=== PATIENT | female | born 1930 | race African-American/Black ===

== ENCOUNTER → 2016-07-09 | Outpatient (CLI) | payer MEDICARE, MEDICAID ==
[2016-07-09 15:30] LABS: ABSOLUTE LYMPHOCYTES (AUTO) 2.3 10^3/uL (0.5-4.7); ABSOLUTE MONOCYTES (AUTO) 0.7 10^3/uL (0.1-1.4); ABSOLUTE NEUT (AUTO) 2.9 10^3/uL (1.7-8.2); BASOPHILS % (AUTO) 0.5 % (0-2); EOSINOPHILS % (AUTO) 0.5 % (0-6); HEMATOCRIT 23.5 % (36.0-47.0); HGB HCT DIFFERENCE -0.4; LYMPHOCYTES % (AUTO) 38.2 % (13-45); MEAN CORPUSCULAR HEMOGLOBIN 26.8 pg (27.0-33.4); MEAN CORPUSCULAR VOLUME 81 fl (80-97); MONOCYTES % (AUTO) 11.6 % (3-13); RED BLOOD COUNT 2.89 10^6/uL (3.72-5.28); RED CELL DISTRIBUTION WIDTH 19.8 % (11.5-14.0); SEGMENTED NEUTROPHILS % (AUTO) 49.2 % (42-78); WHITE BLOOD COUNT 5.9 10^3/uL (4.0-10.5)
[2016-07-09 15:43] LABS: HEMOGLOBIN 7.7 g/dL (12.0-15.5)
[2016-07-09 18:21] LABS: ALANINE AMINOTRANSFERASE 14 U/L (9-52); ALBUMIN 3.3 g/dL (3.5-5.0); ALKALINE PHOSPHATASE 84 U/L (38-126); AMYLASE 110 U/L (30-110); ANION GAP 12 (5-19); ASPARTATE AMINO TRANSFERASE 31 U/L (14-36); BILIRUBIN,TOTAL 0.5 mg/dL (0.2-1.3); BLOOD UREA NITROGEN 23 mg/dL (7-20); CARBON DIOXIDE 25 mmol/L (22-30); CHLORIDE 105 mmol/L (98-107); CREATININE RESULT 1.19 mg/dL (0.52-1.25); GLUCOSE 105 mg/dL (75-110); POTASSIUM 4.1 mmol/L (3.6-5.0); SODIUM 142.1 mmol/L (137-145); TOTAL PROTEIN 10.4 g/dL (6.3-8.2)
== END ==
LOC: OD 14:13
PROVIDERS: ATTEND Specialist
DX: D64.9 Anemia, unspecified (principal); R10.9 Unspecified abdominal pain; D50.9 Iron deficiency anemia, unspecified; R97.0 Elevated carcinoembryonic antigen [CEA]
CPT/HCPCS: 36415; 80053; 82150; 82728; 83540; 83550; 83690; 85025

== ENCOUNTER 2016-08-15 11:10 | Outpatient (CLI) | payer MEDICARE, MEDICAID ==
[~2016-08-15 11:10] MED LIST: FERRIC CARBOXYMALTOSE 750 MG in NORMAL SALINE 250 ML IV PRN; FERUMOXYTOL (NON-ESRD) 510 MG/NS 100 ML IV PRN; NORMAL SALINE 250 ML IV PRN
[2016-08-15 11:48] VITALS: BP 160/78
== END 2016-08-15 12:22 | disposition home or self-care (01) ==
LOC: II 11:10 → 5TH 11:11 → II 12:22
PROVIDERS: ATTEND Internal Medicine
PROC: 3E033GC Introduction of Other Therapeutic Substance into Peripheral Vein, Percutaneous Approach (ICD-10-PCS; principal; 2016-08-15)
DX: D63.1 Anemia in chronic kidney disease (principal); N18.2 Chronic kidney disease, stage 2 (mild)
CPT/HCPCS: 96365; Q0138; J1439; J7050

== ENCOUNTER → 2016-08-26 | Outpatient (CLI) | payer MEDICARE, MEDICAID | LOC: RAD 13:44 | PROVIDERS: ATTEND Internal Medicine Gastroenterology | DX: R10.13 Epigastric pain (principal); R63.4 Abnormal weight loss | CPT/HCPCS: 74177; 82565 ==

== ENCOUNTER 2016-10-16 09:21 | Outpatient (CLI) | payer MEDICARE, MEDICAID ==
[~2016-10-16 09:21] MED LIST changes: +ACETAMINOPHEN 325 MG TABLET PO PRN; +DIPHENHYDRAMINE HCL 25 MG CAPSULE PO PRN; -FERRIC CARBOXYMALTOSE 750 MG in NORMAL SALINE 250 ML IV PRN; -FERUMOXYTOL (NON-ESRD) 510 MG/NS 100 ML IV PRN; +FUROSEMIDE 20 MG TABLET PO PRN; -NORMAL SALINE 250 ML IV PRN
[2016-10-16] MEDS ORDERED: NORMAL SALINE 250 ML IV PRN (09:40)
[2016-10-16 10:18] LABS: HGB HCT DIFFERENCE 0.4; MEAN CORPUSCULAR HEMOGLOBIN 28.4 pg (27.0-33.4); MEAN CORPUSCULAR HGB CONC 34.1 g/dL (32.0-36.0); MEAN CORPUSCULAR VOLUME 83 fl (80-97); RED BLOOD COUNT 2.76 10^6/uL (3.72-5.28); RED CELL DISTRIBUTION WIDTH 19.1 % (11.5-14.0); WHITE BLOOD COUNT 5.2 10^3/uL (4.0-10.5)
[2016-10-16 10:44] LABS: HEMOGLOBIN 7.8 g/dL (12.0-15.5)
[2016-10-16 14:36] VITALS: BP 128/62
== END 2016-10-16 14:52 | disposition home or self-care (01) ==
LOC: II 09:21 → 5TH 09:38 → II 14:52
PROVIDERS: ATTEND Internal Medicine
PROC: 30233N1 Transfusion of Nonautologous Red Blood Cells into Peripheral Vein, Percutaneous Approach (ICD-10-PCS; principal; 2016-10-16)
DX: D64.9 Anemia, unspecified (principal)
CPT/HCPCS: 86900; 86901; 36415; 36430; 86850; 86920; P9016; A9270 ×3

== ENCOUNTER → 2016-11-07 | Outpatient (CLI) | payer MEDICARE, MEDICAID | LOC: RAD 14:46 | PROVIDERS: ATTEND Internal Medicine | DX: C90.00 Multiple myeloma not having achieved remission (principal) | CPT/HCPCS: 77075 ==

== ENCOUNTER 2016-11-18 09:16 | Emergency (ER) | payer MEDICARE, MEDICAID ==
[2016-11-18] MEDS ORDERED: NORMAL SALINE 1000 ML 1,000 ML IV ONE (10:19)
[2016-11-18] MEDS ORDERED: KETOROLAC TROMETHAMINE INJ/PF 30 MG/1 ML SDV IV ONE (10:36)
--- NOTE | 2016-11-18 10:45 | ER Document Report ---
ED General - General Chief Complaint: Weakness Stated Complaint: GENERALIZED WEAKNESS Time Seen by Provider: 11/18/16 10:19 TRAVEL OUTSIDE OF THE [place] IN LAST 30 DAYS: No - HPI Patient complains to provider of: Generalized weakness diffuse body aches Notes: Patient is coming in for evaluation of generalized weakness and diffuse body aches. Symptoms have been ongoing for months. Patient was recently seen by a local oncologist Dr. Spencer diagnosis of multiple myeloma. Currently not on any chemotherapy or radiation for his newly diagnosed cancer. Patient states that she has been tried on tramadol and oxycodone with no relief of her pain. Patient states that the oxycodone does not sit well with her therefore she does not like to take it. Patient is able to tolerate her tramadol however states it does not relieve her pain. Patient otherwise denies any fevers chills. No recent antibiotics no recent travel. States PCP is Dr. Leigh Meza - Related Data Allergies/Adverse Reactions: No Known Allergies Allergy (Verified 10/29/15 22:05) Past Medical History - Social History Smoking Status: Never Smoker Chew tobacco use (# tins/day): No Frequency of alcohol use: None Drug Abuse: None Family History: Reviewed & Not Pertinent - Past Medical History Cardiac Medical History: Reports: Hx Coronary Artery Disease - STENT 2001, Hx Heart Attack, Hx Hypercholesterolemia, Hx Hypertension Pulmonary Medical History: Reports: Hx Asthma, Hx Bronchitis, Hx COPD Denies: Hx Pneumonia Neurological Medical History: Denies: Hx Cerebrovascular Accident, Hx Seizures GI Medical History: Reports: Hx Gastroesophageal Reflux Disease, Hx Hiatal Hernia, Hx Ulcer Musculoskeltal Medical History: Reports Hx Arthritis Infectious Medical History: Past Surgical History: Reports: Hx Cardiac Surgery - Stent 2001, Hx Cholecystectomy, Hx Hysterectomy, Hx Orthopedic Surgery - bilateral knees, Hx Tubal Ligation. Denies: Hx Pacemaker - Immunizations Hx Diphtheria, Pertussis, Tetanus Vaccination: No - UNSURE Hx Pneumococcal Vaccination: 09/27/10 Review of Systems - Review of Systems Constitutional: Weakness, Other - Myalgias EENT: No symptoms reported Cardiovascular: No symptoms reported Respiratory: No symptoms reported Gastrointestinal: No symptoms reported Genitourinary: No symptoms reported Female Genitourinary: No symptoms reported Musculoskeletal: No symptoms reported Skin: No symptoms reported Hematologic/Lymphatic: No symptoms reported Neurological/Psychological: No symptoms reported Physical Exam - Vital signs Vitals: Resp Pulse Ox 15 97 11/18/16 09:40 11/18/16 09:40 Interpretation: Normal - General General appearance: Appears well, Alert - HEENT Head: Normocephalic, Atraumatic Eyes: Normal Pupils: PERRL - Respiratory Respiratory status: No respiratory distress Chest status: Nontender Breath sounds: Normal Chest palpation: Normal - Cardiovascular Rhythm: Regular Heart sounds: Normal auscultation Murmur: No - Abdominal Inspection: Normal Distension: No distension Bowel sounds: Normal Tenderness: Nontender Organomegaly: No organomegaly - Back Back: Normal, Nontender - Extremities General upper extremity: Normal inspection, Nontender, Normal color, Normal ROM , Normal temperature General lower extremity: Normal inspection, Nontender, Normal color, Normal ROM , Normal temperature, Normal weight bearing. No: Latanya's sign - Neurological Neuro grossly intact: Yes Cognition: Normal Orientation: AAOx4 [place] Coma Scale Eye Opening: Spontaneous [place] Coma Scale Verbal: Oriented [place] Coma Scale Motor: Obeys Commands [place] Coma Scale Total: 15 Speech: Normal Motor strength normal: LUE, RUE, LLE, RLE Sensory: Normal - Psychological Associated symptoms: Normal affect, Normal mood - Skin Skin Temperature: Warm Skin Moisture: Dry Skin Color: Normal Course - Re-evaluation Re-evalutation: 11/18/16 10:44 Chronic condition and chronic illness. At this time his examination does not reveal any acute etiology. Lab work is already been ordered on the patient. We will continue her laboratory studies more likely will follow up with her primary care physician 11/18/16 18:53 Patient's lab work showed possible beginning of a urinary tract infection we will start the patient on Macrobid. X-ray does show signs of constipation. Rectal exam was performed if signs of obstruction and patient underwent enema with minimal results. Patient will begin MiraLAX for home. I did discuss with the patient's oncologist recommend trying Yutan for pain control that he will follow-up with the patient. Patient was given IV fluids for her bump in her creatinine. Patient will be discharged home - Vital Signs Vital signs: Temp Pulse Resp BP Pulse Ox 97.9 F 13 174/60 H 94 11/18/16 15:07 11/18/16 15:07 11/18/16 15:07 11/18/16 15:07 - Laboratory Result Diagrams: 11/18/16 10:37 11/18/16 10:37 Laboratory results interpreted by me: 11/18/16 11/18/16 11/18/16 10:37 10:37 12:20 RBC 3.43 L Hgb 9.7 L Hct 29.3 L RDW 17.9 H Chloride 108 H Creatinine 1.33 H Est GFR ( Amer) 46 L Est GFR (Non-Af Amer) 38 L Calcium 10.3 H Direct Bilirubin 0.5 H Total Protein 11.6 H Albumin 3.3 L Urine Blood MODERATE H Ur Leukocyte Esterase SMALL H Discharge - Discharge Clinical Impression: Generalized weakness, Myalgia Urinary tract infection Qualifiers: Urinary tract infection type: acute cystitis Hematuria presence: without hematuria Qualified Code(s): N30.00 - Acute cystitis without hematuria Constipation Qualifiers: Constipation type: unspecified constipation type Qualified Code(s): K59.00 - Constipation, unspecified Condition: Good Disposition: HOME, SELF-CARE Instructions: Nitrofurantoin ([facility]), Urinary Tract Infection ([facility]), Constipation ([facility]), Weakness ([facility]) Additional Instructions: I discussed her case today with Dr. Bustamante. We will start you on Yutan for your pain control. Please do not take this with any Ultram or oxycodone. The pain medication as well as is causing her constipation please make sure that you are taking the MiraLAX as prescribed daily Urinalysis does show signs of the beginning of an infection we will treat this with Macrobid Drink plenty of water to stay hydrated Prescriptions: Hydrocodone/Acetaminophen [Yutan 5-325 mg Tablet] 1 tab PO Q6 #20 tablet Nitrofurantoin/Nitrofuran Mac [Macrobid 100 mg Capsule] 1 tab PO BID #14 capsule Polyethylene Glycol 3350 [Miralax Powder 17 gm/Packet] 1 packet PO DAILY #1 pkg Forms: Return to Work
[2016-11-18 11:15] LABS: ABSOLUTE LYMPHOCYTES (AUTO) 2.2 10^3/uL (0.5-4.7); ABSOLUTE MONOCYTES (AUTO) 0.7 10^3/uL (0.1-1.4); ABSOLUTE NEUT (AUTO) 2.7 10^3/uL (1.7-8.2); BASOPHILS % (AUTO) 0.3 % (0-2); EOSINOPHILS % (AUTO) 0.3 % (0-6); HEMATOCRIT 29.3 % (36.0-47.0); HEMOGLOBIN 9.7 g/dL (12.0-15.5); HGB HCT DIFFERENCE -0.2; LYMPHOCYTES % (AUTO) 38.8 % (13-45); MEAN CORPUSCULAR HEMOGLOBIN 28.4 pg (27.0-33.4); MEAN CORPUSCULAR HGB CONC 33.3 g/dL (32.0-36.0); MEAN CORPUSCULAR VOLUME 85 fl (80-97); RED BLOOD COUNT 3.43 10^6/uL (3.72-5.28); RED CELL DISTRIBUTION WIDTH 17.9 % (11.5-14.0); SEGMENTED NEUTROPHILS % (AUTO) 47.6 % (42-78); WHITE BLOOD COUNT 5.7 10^3/uL (4.0-10.5)
[2016-11-18 11:27] LABS: CREATINE KINASE MB < 0.22 ng/mL (<4.55); TROPONIN I < 0.012 ng/mL
[2016-11-18 11:41] LABS: ANISOCYTOSIS 1+; OVALOCYTES SLIGHT; POIKILOCYTOSIS SLIGHT; TARGET CELLS 1+; TEAR DROP CELLS SLIGHT
[2016-11-18 11:45] LABS: BLOOD UREA NITROGEN 19 mg/dL (7-20); CALCIUM 10.3 mg/dL (8.4-10.2); GLUCOSE 102 mg/dL (75-110)
[2016-11-18 11:46] LABS: ALANINE AMINOTRANSFERASE 18 U/L (9-52); ALBUMIN 3.3 g/dL (3.5-5.0); ALKALINE PHOSPHATASE 83 U/L (38-126); ANION GAP 6 (5-19); ASPARTATE AMINO TRANSFERASE 34 U/L (14-36); BILIRUBIN,DIRECT 0.5 mg/dL (0.0-0.4); BILIRUBIN,TOTAL 0.8 mg/dL (0.2-1.3); CARBON DIOXIDE 28 mmol/L (22-30); CHLORIDE 108 mmol/L (98-107); CREATINE KINASE 40 U/L (30-135); CREATININE RESULT 1.33 mg/dL (0.52-1.25); POTASSIUM 3.8 mmol/L (3.6-5.0); SODIUM 141.8 mmol/L (137-145); TOTAL PROTEIN 11.6 g/dL (6.3-8.2)
--- NOTE | 2016-11-18 11:52 | RADIOLOGY REPORT (SQ) ---
EXAM DESCRIPTION: ACUTE ABDOMEN SERIES COMPLETED DATE/TIME: 11/18/2016 11:27 am REASON FOR STUDY: weakness constipation COMPARISON: 10/11/2010 NUMBER OF VIEWS: Three views. TECHNIQUE: Frontal chest, supine abdomen and upright/decubitus abdomen radiographic images acquired. LIMITATIONS: None. FINDINGS: CHEST: Lungs clear of infiltrates. FREE AIR: None. No abnormal gas collections. BOWEL GAS PATTERN: Nonobstructive pattern. No dilated loops or air fluid levels. CALCIFICATIONS: No suspicious calcifications. HARDWARE: Clips right upper quadrant. SOFT TISSUES: No gross mass or suggestion of organomegaly. BONES: No acute fracture. No worrisome bone lesions. OTHER: No other significant finding. IMPRESSION: NO RADIOGRAPHIC EVIDENCE FOR ACUTE ABDOMINAL DISEASE. TECHNICAL DOCUMENTATION: JOB ID: [id number] [employer]- All Rights Reserved
[2016-11-18 12:55] LABS: APPEARANCE,URINE SLIGHTLY-CLOUDY; BILIRUBIN,URINE NEGATIVE (NEGATIVE); GLUCOSE, URINE NEGATIVE (NEGATIVE); KETONES,URINE NEGATIVE (NEGATIVE); LEUKOCYTE ESTERASE,URINE SMALL (NEGATIVE); NITRITE,URINE NEGATIVE (NEGATIVE); PROTEIN,URINE NEGATIVE (NEGATIVE); URINE SPECIFIC GRAVITY 1.009; UROBILINOGEN,URINE NEGATIVE mg/dL (<2.0)
[2016-11-18] MEDS ORDERED: NITROFURANTOIN MONOHYD/M-CRYST 100 MG CAPSULE PO ONE (13:23)
[2016-11-18] MEDS ORDERED: LIDOCAINE 2% URO-JET 5 ML KIT MM ONE (13:27)
--- NOTE | 2016-11-18 13:35 | EKG REPORT ---
SEVERITY:- NORMAL ECG - SINUS RHYTHM : Confirmed by: Vishal Infante MD 18-Nov-2016 13:34:04
[2016-11-18] MEDS ORDERED: NA PHOS,M-B/NA PHOS,DI-BA (ADULT) 133 ML ENEMA PR ONE (13:40)
[2016-11-18 15:49] VITALS: BP 174/60
== END 2016-11-18 15:58 | disposition home or self-care (01) ==
LOC: ER 09:16
DX: C90.00 Multiple myeloma not having achieved remission (principal); N30.00 Acute cystitis without hematuria; R53.1 Weakness; M79.1 Myalgia; I25.10 Atherosclerotic heart disease of native coronary artery without angina pectoris; I25.2 Old myocardial infarction; I10 Essential (primary) hypertension; J44.9 Chronic obstructive pulmonary disease, unspecified; Z98.61 Coronary angioplasty status
CPT/HCPCS: 93005; 99285; 96374; 36415; 87086; 82553; 82550; 85025; 80053; 81001; 84484; 74022; 93010; A9270 ×3; J1885; J7030; J3490; J8499

== ENCOUNTER 2016-11-28 23:59 | Emergency (ER) | payer MEDICARE, MEDICAID ==
[2016-11-29 00:06] VITALS: BP 141/54
--- NOTE | 2016-11-29 00:36 | ER Document Report ---
ED GI/ - General Mode of Arrival: Medic Information source: Patient TRAVEL OUTSIDE OF THE [place] IN LAST 30 DAYS: No - HPI Patient complains to provider of: Abdominal pain Onset: Other - Refer to HPI notes Associated symptoms: Constipation Similar symptoms previously: Yes Recently seen / treated by doctor: Yes <MARISELA MANUEL - Last Filed: 11/29/16 01:00> <BRANDON ANGEL - Last Filed: 11/29/16 03:18> - General Chief Complaint: Abdominal Cramping Stated Complaint: ABDOMINAL PAIN Time Seen by Provider: 11/29/16 00:24 Notes: Patient is an 86 year old female presenting to the emergency department for abdominal pain and constipation. Patient was seen on 11/18/16 for the same. Patient has been using a stool softener with no relief. Patient has not been moving her bowels and her abdominal pain is exacerbated with sitting up. Patient has multiple myeloma with metastasis and started chemotherapy on . Patient has not been able to complete her chemotherapy treatments due to her abdominal pain. Patient is followed for her multiple myeloma by Dr. Sifuentes and patient's PCP is Dr. Meza. (MARISELA MANUEL) - Related Data Allergies/Adverse Reactions: No Known Allergies Allergy (Verified 10/29/15 22:05) Past Medical History - General Information source: Patient - Social History Smoking Status: Unknown if Ever Smoked Family History: None - Past Medical History Cardiac Medical History: Reports: Hx Coronary Artery Disease, Hx Heart Attack, Hx Hypercholesterolemia, Hx Hypertension Pulmonary Medical History: Reports: Hx Asthma, Hx Bronchitis, Hx COPD Malignancy Medical History: Reports: Other - Multiple myeloma with metastasis GI Medical History: Reports: Hx Gastroesophageal Reflux Disease, Hx Hiatal Hernia, Hx Ulcer Musculoskeltal Medical History: Reports Hx Arthritis Infectious Medical History: Past Surgical History: Reports: Hx Cardiac Surgery - Stent x2 2001, Hx Cholecystectomy, Hx Hysterectomy, Hx Orthopedic Surgery - bilateral knees, Hx Tubal Ligation - Immunizations Hx Diphtheria, Pertussis, Tetanus Vaccination: No - UNSURE Hx Pneumococcal Vaccination: 09/27/10 <MARISELA MANUEL - Last Filed: 11/29/16 01:00> Review of Systems - Review of Systems Constitutional: No symptoms reported EENT: No symptoms reported Cardiovascular: No symptoms reported Respiratory: No symptoms reported Gastrointestinal: See HPI, Abdominal pain, Constipation Genitourinary: No symptoms reported Female Genitourinary: No symptoms reported Musculoskeletal: No symptoms reported Skin: No symptoms reported Hematologic/Lymphatic: No symptoms reported Neurological/Psychological: No symptoms reported -: Yes All other systems reviewed and negative <MARISELA MANUEL - Last Filed: 11/29/16 01:00> Physical Exam - Vital signs Interpretation: Normal - General General appearance: Appears well, Alert In distress: Moderate - HEENT Head: Normocephalic, Atraumatic Eyes: Normal Pupils: PERRL Mucous membranes: Moist - Respiratory Respiratory status: No respiratory distress Chest status: Nontender Breath sounds: Normal Chest palpation: Normal - Cardiovascular Rhythm: Regular Heart sounds: Normal auscultation Murmur: No - Abdominal Inspection: Normal Distension: No distension Bowel sounds: Normal Tenderness: Tender - Tenderness to palpation more so on the right lower quadrant and right side Organomegaly: No organomegaly - Back Back: Normal, Nontender - Extremities General upper extremity: Normal inspection, Normal ROM, Normal strength General lower extremity: Normal inspection, Normal ROM, Normal strength - Neurological Neuro grossly intact: Yes Cognition: Normal Orientation: AAOx4 [place] Coma Scale Eye Opening: Spontaneous [place] Coma Scale Verbal: Oriented [place] Coma Scale Motor: Obeys Commands [place] Coma Scale Total: 15 Speech: Normal - Psychological Associated symptoms: Normal affect, Normal mood - Skin Skin Temperature: Warm Skin Moisture: Dry <MARISELA MANUEL - Last Filed: 11/29/16 01:00> <BRANDON ANGEL - Last Filed: 11/29/16 03:18> - Vital signs Vitals: Temp Pulse Resp BP Pulse Ox 99.6 F 64 16 141/54 H 94 11/29/16 00:04 11/29/16 00:04 11/29/16 00:04 11/29/16 00:04 11/29/16 00:04 Course - Laboratory Result Diagrams: 11/29/16 00:30 11/29/16 00:30 <MARISELA MANUEL - Last Filed: 11/29/16 01:00> - Laboratory Result Diagrams: 11/29/16 00:30 11/29/16 01:05 - Diagnostic Test Radiology reviewed: Image reviewed - Right colon constipation - EKG Interpretation by Fl EKG shows normal: Sinus rhythm, [place], Intervals, QRS Complexes, ST-T Waves Rate: Normal - 61 Rhythm: NSR P Waves: LAE - Consults Dr. Bright Time consulted: 02:05 Consulted provider: follow-up in office <BRANDON ANGEL - Last Filed: 11/29/16 03:18> - Re-evaluation Re-evalutation: 11/29/16 01:59 Patient's serum lipase is 673, however reviewing her prior labs shows it is usually higher than this over the past year. KUB showed right colon constipation, she is on a polyethylene glycol powder to treat her constipation. (BRANDON ANGEL) - Vital Signs Vital signs: Temp Pulse Resp BP Pulse Ox 99.6 F 64 16 141/54 H 94 11/29/16 00:04 11/29/16 00:04 11/29/16 00:04 11/29/16 00:04 11/29/16 00:04 - Laboratory Laboratory results interpreted by me: 11/29/16 11/29/16 11/29/16 00:30 01:05 02:35 RBC 2.77 L Hgb 8.0 L Hct 24.1 L RDW 18.2 H Plt Count 120 L BUN 35 H Est GFR (Non-Af Amer) 53 L Total Protein 9.9 H Albumin 3.1 L Lipase 672.7 H Urine Blood MODERATE H Critical Care Note - Critical Care Note Total time excluding time spent on procedures (mins): 35 <BRANDON ANGEL - Last Filed: 11/29/16 03:18> Discharge <MARISELA MANUEL - Last Filed: 11/29/16 01:00> <BRANDON ANGEL - Last Filed: 11/29/16 03:18> - Discharge Clinical Impression: Serum lipase elevation Multiple myeloma Qualifiers: Multiple myeloma remission status: not in remission Qualified Code(s): C90.00 - Multiple myeloma not having achieved remission Constipation Qualifiers: Constipation type: drug induced constipation Qualified Code(s): K59.03 - Drug induced constipation Abdominal pain Qualifiers: Abdominal location: generalized Qualified Code(s): R10.84 - Generalized abdominal pain Anemia Qualifiers: Anemia type: other cause Other causes of anemia: other cause, not classified Qualified Code(s): D64.89 - Other specified anemias Condition: Stable Disposition: HOME, SELF-CARE Additional Instructions: Your abdominal pain seems most likely to be related to constipation. Your lab work suggests you should drink more fluids than you have been. Continue your regular medications. Follow-up with Dr. Bright on Thursday to recheck your lab work. Binh Attestation: 11/29/16 03:18 I personally performed the services described in the documentation, reviewed and edited the documentation which was dictated to the scribe in my presence, and it accurately records my words and actions. (BRANDON ANGEL) Scribe Documentation - Scribe Written by Binh:: Binh Nation, 11/29/2016 1:00 acting as scribe for :: Harriet <MARISELA MANUEL - Last Filed: 11/29/16 01:00>
[2016-11-29 00:54] LABS: ABSOLUTE LYMPHOCYTES (AUTO) 1.1 10^3/uL (0.5-4.7); ABSOLUTE MONOCYTES (AUTO) 0.6 10^3/uL (0.1-1.4); ABSOLUTE NEUT (AUTO) 3.5 10^3/uL (1.7-8.2); BASOPHILS % (AUTO) 0.9 % (0-2); EOSINOPHILS % (AUTO) 0.5 % (0-6); HEMATOCRIT 24.1 % (36.0-47.0); HGB HCT DIFFERENCE -0.1; LYMPHOCYTES % (AUTO) 21.2 % (13-45); MEAN CORPUSCULAR HGB CONC 33.3 g/dL (32.0-36.0); MEAN CORPUSCULAR VOLUME 87 fl (80-97); MONOCYTES % (AUTO) 11.9 % (3-13); RED BLOOD COUNT 2.77 10^6/uL (3.72-5.28); RED CELL DISTRIBUTION WIDTH 18.2 % (11.5-14.0); SEGMENTED NEUTROPHILS % (AUTO) 65.5 % (42-78); WHITE BLOOD COUNT 5.4 10^3/uL (4.0-10.5)
[2016-11-29 01:32] LABS: ALANINE AMINOTRANSFERASE 26 U/L (9-52); ALBUMIN 3.1 g/dL (3.5-5.0); ALKALINE PHOSPHATASE 68 U/L (38-126); ANION GAP 10 (5-19); ASPARTATE AMINO TRANSFERASE 36 U/L (14-36); BILIRUBIN,DIRECT 0.4 mg/dL (0.0-0.4); BILIRUBIN,TOTAL 0.7 mg/dL (0.2-1.3); BLOOD UREA NITROGEN 35 mg/dL (7-20); CARBON DIOXIDE 28 mmol/L (22-30); CHLORIDE 107 mmol/L (98-107); CREATINE KINASE 35 U/L (30-135); GLUCOSE 110 mg/dL (75-110); LIPASE 672.7 U/L (23-300); POTASSIUM 3.6 mmol/L (3.6-5.0); SODIUM 144.5 mmol/L (137-145); TOTAL PROTEIN 9.9 g/dL (6.3-8.2)
[2016-11-29 01:45] LABS: CREATINE KINASE MB 0.35 ng/mL (<4.55); TROPONIN I 0.029 ng/mL
[2016-11-29] MEDS ORDERED: MAGNESIUM CITRATE 296 ML BOTTLE PO ONE (02:09)
--- NOTE | 2016-11-29 02:29 | RADIOLOGY REPORT (SQ) ---
EXAM DESCRIPTION: KUB/ABDOMEN (SINGLE VIEW) COMPLETED DATE/TIME: 11/29/2016 1:38 am REASON FOR STUDY: ABD PAIN COMPARISON: Abdominal series 11/18/2016, CT abdomen and pelvis 08/26/2016. NUMBER OF VIEWS: One view. TECHNIQUE: Supine radiographic image of the abdomen acquired. LIMITATIONS: None. FINDINGS: BOWEL GAS PATTERN: Nonobstructive bowel gas pattern. No dilated loops. CALCIFICATIONS: No suspicious calcifications. SOFT TISSUES: No gross mass or suggestion of organomegaly. HARDWARE: Surgical clips in the right upper quadrant. BONES: Multilevel degenerative changes in the spine. IMPRESSION: Nonobstructive bowel gas pattern. TECHNICAL DOCUMENTATION: JOB ID: [id number] 2010 [employer]- All Rights Reserved
[2016-11-29 03:13] LABS: APPEARANCE,URINE SLIGHTLY-CLOUDY; BILIRUBIN,URINE NEGATIVE (NEGATIVE); GLUCOSE, URINE NEGATIVE (NEGATIVE); KETONES,URINE NEGATIVE (NEGATIVE); LEUKOCYTE ESTERASE,URINE NEGATIVE (NEGATIVE); NITRITE,URINE NEGATIVE (NEGATIVE); PROTEIN,URINE NEGATIVE (NEGATIVE); UROBILINOGEN,URINE NEGATIVE mg/dL (<2.0)
--- NOTE | 2016-11-30 09:25 | EKG REPORT ---
SEVERITY:- BORDERLINE ECG - SINUS RHYTHM PROBABLE LEFT ATRIAL ABNORMALITY : Confirmed by: Osvaldo Bro 30-Nov-2016 09:23:55
== END 2016-11-29 07:40 | disposition home or self-care (01) ==
LOC: ER 23:59
DX: C90.00 Multiple myeloma not having achieved remission (principal); K59.03 Drug induced constipation; R10.84 Generalized abdominal pain; D64.89 Other specified anemias
CPT/HCPCS: 93005; 99285; 36415; 87040; 82553; 82550; 83690; 85025; 80053; 81001; 84484; 74000; 93010; J3490

== ENCOUNTER 2017-02-03 11:51 | Emergency (ER) | payer MEDICARE, MEDICAID ==
[2017-02-03 12:08] VITALS: BP 133/71
--- NOTE | 2017-02-03 12:11 | EKG REPORT ---
SEVERITY:- BORDERLINE ECG - SINUS RHYTHM LVH BY VOLTAGE : Confirmed by: Osvaldo Bro 03-Feb-2017 12:10:35
--- NOTE | 2017-02-03 12:12 | ER Document Report ---
ED Medical Screen (RME) - General Chief Complaint: Chest Pain Stated Complaint: CHEST PAIN Time Seen by Provider: 02/03/17 12:09 Notes: Patient presents with left-sided chest pain for approximately 3 days. She states it is constant and severe. Patient did have a stent placed approximate 15 years ago. Patient also has "bone cancer". She last received treatment 3 days ago. She states she is not short of breath but it does hurt to breathe. No cough or congestion. Patient does take daily Lovenox injections. TRAVEL OUTSIDE OF THE [place] IN LAST 30 DAYS: No - Related Data Allergies/Adverse Reactions: No Known Allergies Allergy (Verified 10/29/15 22:05) Past Medical History - Past Medical History Cardiac Medical History: Reports: Hx Coronary Artery Disease, Hx Heart Attack, Hx Hypercholesterolemia, Hx Hypertension Pulmonary Medical History: Reports: Hx Asthma, Hx Bronchitis, Hx COPD Denies: Hx Pneumonia Neurological Medical History: Denies: Hx Cerebrovascular Accident, Hx Seizures Renal/ Medical History: Denies: Hx Peritoneal Dialysis GI Medical History: Reports: Hx Gastroesophageal Reflux Disease, Hx Hiatal Hernia, Hx Ulcer Musculoskeltal Medical History: Reports Hx Arthritis Infectious Medical History: Past Surgical History: Reports: Hx Cardiac Surgery - Stent x2 2001, Hx Cholecystectomy, Hx Hysterectomy, Hx Orthopedic Surgery - bilateral knees, Hx Tubal Ligation. Denies: Hx Pacemaker - Immunizations Hx Diphtheria, Pertussis, Tetanus Vaccination: No - UNSURE Physical Exam - Vital signs Vitals: Temp Pulse BP Pulse Ox 98.9 F 92 133/71 H 98 02/03/17 12:07 02/03/17 12:07 02/03/17 12:07 02/03/17 12:07 Course - Vital Signs Vital signs: Temp Pulse Resp BP Pulse Ox 98.9 F 92 133/71 H 98 02/03/17 12:07 02/03/17 12:07 02/03/17 12:07 02/03/17 12:07
[2017-02-03 12:57] LABS: ABSOLUTE LYMPHOCYTES (AUTO) 2.6 10^3/uL (0.5-4.7); ABSOLUTE MONOCYTES (AUTO) 0.3 10^3/uL (0.1-1.4); ABSOLUTE NEUT (AUTO) 1.1 10^3/uL (1.7-8.2); BASOPHILS % (AUTO) 0.5 % (0-2); EOSINOPHILS % (AUTO) 0.5 % (0-6); HEMATOCRIT 31.2 % (36.0-47.0); HEMOGLOBIN 10.3 g/dL (12.0-15.5); HGB HCT DIFFERENCE -0.3; LYMPHOCYTES % (AUTO) 63.6 % (13-45); MEAN CORPUSCULAR HEMOGLOBIN 27.6 pg (27.0-33.4); MEAN CORPUSCULAR VOLUME 84 fl (80-97); MONOCYTES % (AUTO) 7.6 % (3-13); RED BLOOD COUNT 3.72 10^6/uL (3.72-5.28); SEGMENTED NEUTROPHILS % (AUTO) 27.8 % (42-78); WHITE BLOOD COUNT 4.1 10^3/uL (4.0-10.5)
[2017-02-03 13:01] LABS: ALANINE AMINOTRANSFERASE 28 U/L (9-52); ALBUMIN 3.4 g/dL (3.5-5.0); ALKALINE PHOSPHATASE 133 U/L (38-126); ANION GAP 10 (5-19); ASPARTATE AMINO TRANSFERASE 37 U/L (14-36); BILIRUBIN,DIRECT 0.4 mg/dL (0.0-0.4); BILIRUBIN,TOTAL 0.7 mg/dL (0.2-1.3); BLOOD UREA NITROGEN 10 mg/dL (7-20); CALCIUM 8.8 mg/dL (8.4-10.2); CARBON DIOXIDE 25 mmol/L (22-30); CHLORIDE 104 mmol/L (98-107); CREATININE RESULT 0.74 mg/dL (0.52-1.25); GLUCOSE 102 mg/dL (75-110); POTASSIUM 4.1 mmol/L (3.6-5.0); SODIUM 138.7 mmol/L (137-145); TOTAL PROTEIN 7.6 g/dL (6.3-8.2)
[2017-02-03 13:02] LABS: ADD ON TESTING BLD IN LAB ACKNOWLEDGE
--- NOTE | 2017-02-03 13:04 | RADIOLOGY REPORT (SQ) ---
EXAM DESCRIPTION: CHEST SINGLE VIEW COMPLETED DATE/TIME: 02/03/2017 12:47 pm REASON FOR STUDY: cp COMPARISON: Chest films 11/02/2014, 06/09/2016 CT chest 01/20/2015 EXAM PARAMETERS: NUMBER OF VIEWS: One view. TECHNIQUE: Single frontal radiographic view of the chest acquired. RADIATION DOSE: NA LIMITATIONS: None. FINDINGS: LUNGS AND PLEURA: No opacities, masses or pneumothorax. No pleural effusion. MEDIASTINUM AND HILAR STRUCTURES: No masses. Contour normal. HEART AND VASCULAR STRUCTURES: Heart normal in size. Normal vasculature. BONES: No acute findings. Probably chronic T7 or T8 compression deformity HARDWARE: None in the chest. OTHER: No other significant finding. IMPRESSION: NO ACUTE RADIOGRAPHIC FINDING IN THE CHEST. TECHNICAL DOCUMENTATION: JOB ID: [id number]
--- NOTE | 2017-02-03 13:11 | ER Document Report ---
ED General - General Information source: Patient TRAVEL OUTSIDE OF THE [place] IN LAST 30 DAYS: No - HPI Onset: Other - 3 days Associated symptoms: Other - see above <PEGGY HUANG - Last Filed: 02/03/17 13:08> <BRANDON ANGEL - Last Filed: 02/03/17 16:32> - General Chief Complaint: Chest Pain Stated Complaint: CHEST PAIN Time Seen by Provider: 02/03/17 12:09 Notes: Patient is an 86 year old female who presents to the ED with complaints of left sided chest pain x3 days. Patient states exercise makes the pain worse. Patient states the pain comes and goes but also states it is there all the time. Patient is a vague historian. Patient is currently being treated for multiple myeloma with her first chemo being last Thrusday, she is not on any radiation. Patient is on a Fentanyl patch and 4mg hydromorphone every 6 hours. The last few days the pain medication has not been working. (PEGGY HUANG) - Related Data Allergies/Adverse Reactions: No Known Allergies Allergy (Verified 10/29/15 22:05) Past Medical History - General Information source: Patient - Social History Smoking Status: Unknown if Ever Smoked Family History: None Patient has suicidal ideation: No Patient has homicidal ideation: No - Past Medical History Cardiac Medical History: Reports: Hx Coronary Artery Disease, Hx Heart Attack, Hx Hypercholesterolemia, Hx Hypertension Pulmonary Medical History: Reports: Hx Asthma, Hx Bronchitis, Hx COPD Denies: Hx Pneumonia Neurological Medical History: Denies: Hx Cerebrovascular Accident, Hx Seizures Renal/ Medical History: Denies: Hx Peritoneal Dialysis GI Medical History: Reports: Hx Gastroesophageal Reflux Disease, Hx Hiatal Hernia, Hx Ulcer Musculoskeltal Medical History: Reports Hx Arthritis Infectious Medical History: Past Surgical History: Reports: Hx Cardiac Surgery - Stent x2 2001, Hx Cholecystectomy, Hx Hysterectomy, Hx Orthopedic Surgery - bilateral knees, Hx Tubal Ligation. Denies: Hx Pacemaker - Immunizations Hx Diphtheria, Pertussis, Tetanus Vaccination: No - UNSURE Hx Pneumococcal Vaccination: 09/27/10 <PEGGY HUANG - Last Filed: 02/03/17 13:08> Review of Systems - Review of Systems Constitutional: No symptoms reported EENT: No symptoms reported Cardiovascular: See HPI, Chest pain Respiratory: No symptoms reported Gastrointestinal: No symptoms reported Genitourinary: No symptoms reported Female Genitourinary: No symptoms reported Musculoskeletal: No symptoms reported Skin: No symptoms reported Hematologic/Lymphatic: No symptoms reported Neurological/Psychological: No symptoms reported <PEGGY HUANG - Last Filed: 02/03/17 13:08> Physical Exam - General General appearance: Alert In distress: None - HEENT Head: Normocephalic, Atraumatic Eyes: Normal Extraocular movements intact: Yes Pupils: PERRL - Respiratory Respiratory status: No respiratory distress Chest status: Tender - lateral left ribs tender at the L4, L5 level Breath sounds: Normal Chest palpation: Tender - lateral left ribs tender at the L4, L5 level - Cardiovascular Rhythm: Regular Heart sounds: Normal auscultation Murmur: No - Abdominal Inspection: Normal Distension: No distension Bowel sounds: Normal Tenderness: Nontender - Back Back: Normal - Extremities General upper extremity: Normal inspection, Normal ROM General lower extremity: Normal inspection, Normal ROM. No: Edema - Neurological Neuro grossly intact: Yes - Psychological Associated symptoms: Normal affect, Normal mood - Skin Skin Temperature: Warm Skin Moisture: Dry Skin Color: Normal <PEGGY HUANG - Last Filed: 02/03/17 13:08> Course - Laboratory Result Diagrams: 02/03/17 12:24 02/03/17 12:24 <PEGGY HUANG - Last Filed: 02/03/17 13:08> - Laboratory Result Diagrams: 02/03/17 12:24 02/03/17 12:24 <BRANDON ANGEL - Last Filed: 02/03/17 16:32> - Vital Signs Vital signs: Temp Pulse Resp BP Pulse Ox 98.9 F 92 133/71 H 98 02/03/17 12:07 02/03/17 12:07 02/03/17 12:07 02/03/17 12:07 - Laboratory Laboratory results interpreted by fl: 02/03/17 02/03/17 02/03/17 12:24 12:24 12:24 Hgb 10.3 L Hct 31.2 L RDW 18.0 H Seg Neutrophils % 27.8 L Lymphocytes % 63.6 H Absolute Neutrophils 1.1 L AST 37 H Alkaline Phosphatase 133 H Albumin 3.4 L Lipase 676.9 H Urine Blood Ur Leukocyte Esterase 08/08/17 14:36 Hgb Hct RDW Seg Neutrophils % Lymphocytes % Absolute Neutrophils AST Alkaline Phosphatase Albumin Lipase Urine Blood SMALL H Ur Leukocyte Esterase MODERATE H Discharge <PEGGY HUANG - Last Filed: 02/03/17 13:08> <BRANDON ANGEL - Last Filed: 02/03/17 16:32> - Discharge Clinical Impression: Rib pain on left side Multiple myeloma Qualifiers: Multiple myeloma remission status: not in remission Qualified Code(s): C90.00 - Multiple myeloma not having achieved remission Condition: Stable Disposition: HOME, SELF-CARE Additional Instructions: Your left-sided chest pain seems to be coming from the ribs or chest wall. May be due to a muscle strain, or may be due to the multiple myeloma getting into the rib bones. Continue taking your regular pain medication as needed. Follow-up with Dr. Meza this week if not improving. Referrals: KVNG MEZA MD [Primary Care Provider] - Follow up as needed Scribe Attestation: 02/03/17 14:37 I personally performed the services described in the documentation, reviewed and edited the documentation which was dictated to the scribe in my presence, and it accurately records my words and actions. (BRANDON ANGEL) Scribe Documentation - Scribe Written by Lilo:: lilo Harding, 02/03/2017, [id number] acting as scribe for :: Harriet <PEGGY HUANG - Last Filed: 02/03/17 13:08>
[2017-02-03 13:32] LABS: ANISOCYTOSIS 2+; OVALOCYTES 1+; POIKILOCYTOSIS 1+; POLYCHROMASIA SLIGHT; ROULEAUX 1+; TARGET CELLS 1+; TEAR DROP CELLS SLIGHT
[2017-02-03 13:46] LABS: LIPASE 676.9 U/L (23-300)
[2017-02-03] MEDS ORDERED: HYDROMORPHONE HCL 2 MG TABLET PO ONE (13:55)
[2017-02-03 14:56] LABS: APPEARANCE,URINE SLIGHTLY-CLOUDY; BILIRUBIN,URINE NEGATIVE (NEGATIVE); GLUCOSE, URINE NEGATIVE (NEGATIVE); KETONES,URINE NEGATIVE (NEGATIVE); LEUKOCYTE ESTERASE,URINE MODERATE (NEGATIVE); NITRITE,URINE NEGATIVE (NEGATIVE); PROTEIN,URINE NEGATIVE (NEGATIVE); URINE SPECIFIC GRAVITY 1.014; UROBILINOGEN,URINE NEGATIVE mg/dL (<2.0)
== END 2017-02-03 16:54 | disposition home or self-care (01) ==
LOC: ER 11:51
DX: R07.89 Other chest pain (principal); C90.00 Multiple myeloma not having achieved remission; Z79.899 Other long term (current) drug therapy
CPT/HCPCS: 93005; 99284; 36415; 83690; 85025; 80053; 81001; 84484; 71010; 93010; A9270

== ENCOUNTER → 2017-02-20 | Outpatient (CLI) | payer MEDICARE, MEDICAID ==
[2017-02-20 15:46] LABS: ALANINE AMINOTRANSFERASE 30 U/L (9-52); ALBUMIN 3.7 g/dL (3.5-5.0); ALKALINE PHOSPHATASE 106 U/L (38-126); BILIRUBIN,DIRECT 0.5 mg/dL (0.0-0.4); BILIRUBIN,TOTAL 0.9 mg/dL (0.2-1.3); CHOLESTEROL 255.51 mg/dL (0-200); Direct HDL 48 mg/dL (>40); TOTAL PROTEIN 6.4 g/dL (6.3-8.2); TRIGLYCERIDES 130 mg/dL (<150)
[2017-02-20 16:01] LABS: DIRECT LDL 159 mg/dL (<100)
[2017-02-20 16:02] LABS: ASPARTATE AMINO TRANSFERASE 33 U/L (14-36)
== END ==
LOC: OD 14:24
PROVIDERS: ATTEND Specialist
DX: E78.4 Other hyperlipidemia (principal); D64.9 Anemia, unspecified; I25.10 Atherosclerotic heart disease of native coronary artery without angina pectoris; J44.9 Chronic obstructive pulmonary disease, unspecified; K21.9 Gastro-esophageal reflux disease without esophagitis; M19.90 Unspecified osteoarthritis, unspecified site; R00.2 Palpitations; R01.1 Cardiac murmur, unspecified; R06.09 Other forms of dyspnea; Z98.61 Coronary angioplasty status; I34.1 Nonrheumatic mitral (valve) prolapse; E66.8 Other obesity; I12.9 Hypertensive chronic kidney disease with stage 1 through stage 4 chronic kidney disease, or unspecified chronic kidney disease; N18.3 Chronic kidney disease, stage 3 (moderate); Z79.899 Other long term (current) drug therapy
CPT/HCPCS: 36415; 80061; 80076

== ENCOUNTER → 2017-04-20 | Outpatient (CLI) | payer MEDICARE, MEDICAID ==
--- NOTE | 2017-04-20 14:59 | RADIOLOGY REPORT (SQ) ---
EXAM DESCRIPTION: CHEST PA/LATERAL COMPLETED DATE/TIME: 04/20/2017 2:49 pm REASON FOR STUDY: CHEST PAIN, UNSPECIFIED COMPARISON: Chest films 02/03/2017, 06/09/2016 CT chest 01/20/2015 EXAM PARAMETERS: NUMBER OF VIEWS: two views TECHNIQUE: Digital Frontal and Lateral radiographic views of the chest acquired. RADIATION DOSE: NA LIMITATIONS: none FINDINGS: LUNGS AND PLEURA: No opacities, masses or pneumothorax. No pleural effusion. MEDIASTINUM AND HILAR STRUCTURES: No masses or contour abnormalities. HEART AND VASCULAR STRUCTURES: Mild cardiomegaly BONES: Osteoporotic. No thoracic compression deformities. HARDWARE: Clips right upper quadrant post cholecystectomy. OTHER: No other significant finding. IMPRESSION: No acute findings TECHNICAL DOCUMENTATION: JOB ID: [id number] [employer]- All Rights Reserved
== END ==
LOC: OD 14:36
PROVIDERS: ATTEND Family Medicine
DX: R07.9 Chest pain, unspecified (principal)
CPT/HCPCS: 71020

== ENCOUNTER → 2017-04-23 | Outpatient (CLI) | payer MEDICARE, MEDICAID ==
--- NOTE | 2017-04-29 19:07 | XCELERA REPORT ---
[address] [address] Transthoracic Echocardiogram Report Name: FREDERICK GARCIA Age: 86 yrs Gender: Female : 1930 Patient Status: Outpatient Patient Location: Study Date: 04/23/2017 12:54 PM Height: 64 in Weight: 143 lb BSA: 1.7 m2 Procedure: A two-dimensional transthoracic echocardiogram with color flow and Doppler was performed. Study Quality: Fair. Reason For Study: CP History: Chest pain. Ordering Physician: JACEY SANDOVAL Performed By: Susan Rene Interpretation Summary The left ventricle is normal in size. There is normal left ventricular wall thickness. LV EF is 80% The left ventricle is hyperdynamic. Doppler measurements suggest normal left ventricular diastolic function Hyperdynamic contractility of all LV srivastava. There is no ventricular septal defect visualized. There is mild right ventricular hypertrophy. The right ventricular systolic function is normal. The right atrium is mildly dilated. The left atrium is mildly dilated. There is no evidence of mitral valve prolapse. There is no vegetation seen on the mitral valve. There is no mitral valve stenosis. There is a mild amount of mitral regurgitation There is no LVOT obstruction. Although the AV opens well due toHyperdynamic LV contractilty therre is a 20 mm graient acrss the AV. There is no tricuspid stenosis. There is a moderate amount of tricuspid regurgitation Best estimated RVSP is approximately RVSP is 52 mm of Hg , with RA mean of 15. mm/Hg. The aortic root is normal size. There is no pericardial effusion. MMode/2D Measurements & Calculations RVDd: 2.8 cm LVIDd: 4.2 cm FS: 49.3 % Ao root diam: 2.7 cm IVSd: 0.98 cm LVIDs: 2.1 cm EDV(Teich): 76.8 ml LVPWd: 1.00 cmESV(Teich): 14.6 ml Ao root area: 5.9 cm2 EF(Teich): 81.0 % LVOT diam: 1.9 cm LVOT area: 2.9 cm2 Doppler Measurements & Calculations MV E max yani: MV dec slope: Ao V2 max: LV V1 max P.5 cm/sec 522.0 cm/sec2 213.3 cm/sec 11.1 mmHg MV A max yani: MV dec time: Ao max PG: LV V1 mean P.5 cm/sec 0.22 sec 18.2 mmHg 5.2 mmHg MV E/A: 1.1 Ao V2 mean: LV V1 max: 124.0 cm/sec 166.6 cm/sec Ao mean PG: LV V1 mean: 7.1 mmHg 105.6 cm/sec Ao V2 VTI: 47.7 cmLV V1 VTI: 41.0 cm WAI(I,D): 2.5 cm2 WAI(V,D): 2.3 cm2 SV(LVOT): 120.6 ml PA V2 max: TR max yani: 107.6 cm/sec 294.8 cm/sec PA max P.6 mmHg TR max P.2 mmHg Left Ventricle The left ventricle is normal in size. There is normal left ventricular wall thickness. LV EF is 80%. The left ventricle is hyperdynamic. Doppler measurements suggest normal left ventricular diastolic function. Hyperdynamic contractility of all LV srivastava. There is no thrombus. There is no ventricular septal defect visualized. Right Ventricle There is mild right ventricular hypertrophy. The right ventricular systolic function is normal. Atria The right atrium is mildly dilated. The left atrium is mildly dilated. The interatrial septum is intact with no evidence for an atrial septal defect. Mitral Valve There is no evidence of mitral valve prolapse. There is no vegetation seen on the mitral valve. There is no mitral valve stenosis. There is a mild amount of mitral regurgitation. Aortic Valve There is no aortic valvular vegetation. There is no LVOT obstruction. Although the AV opens well due toHyperdynamic LV contractilty therre is a 20 mm graient acrss the AV. Tricuspid Valve There is no tricuspid stenosis. There is a moderate amount of tricuspid regurgitation. Best estimated RVSP is approximately RVSP is 52 mm of Hg , with RA mean of 15. mm/Hg. Pulmonic Valve There is no pulmonic valvular stenosis. There is no pulmonic valvular regurgitation. Great Vessels The aortic root is normal size. Effusions There is no pericardial effusion. : JACEY SANDOVAL > Jacey Sandoval
== END ==
LOC: SP 12:48
PROVIDERS: ATTEND Specialist
DX: R07.9 Chest pain, unspecified (principal)
CPT/HCPCS: 93306

== ENCOUNTER 2018-01-04 11:49 | Emergency (ER) | payer MEDICARE, MEDICAID ==
--- NOTE | 2018-01-04 11:53 | ER Document Report ---
ED General - General Stated Complaint: INGESTION OF FOREIGN SUBSTANCE Time Seen by Provider: 01/04/18 11:50 Mode of Arrival: Medic Information source: Patient Notes: 87-year-old female history of multiple myeloma presents after accidental ingestion of Clorox bleach. Appears family member was washing dishes left the bottle bleach out, the patient normally drinks 2 bottles of water prior to getting her lab work done, she saw the bottle and took a large sip. Patient has been drinking water since no other complaints Denies any suicidal homicidal ideations TRAVEL OUTSIDE OF THE [place] IN LAST 30 DAYS: No - HPI Onset: Just prior to arrival Onset/Duration: Sudden Quality of pain: No pain Severity: Mild Pain Level: Denies Associated symptoms: Other Exacerbated by: Denies Relieved by: Denies Similar symptoms previously: No Recently seen / treated by doctor: No - Related Data Allergies/Adverse Reactions: No Known Allergies Allergy (Verified 10/29/15 22:05) Past Medical History - Social History Smoking Status: Never Smoker Cigarette use (# per day): No Chew tobacco use (# tins/day): No Smoking Education Provided: No Family History: None - Past Medical History Cardiac Medical History: Reports: Hx Coronary Artery Disease, Hx Heart Attack, Hx Hypercholesterolemia, Hx Hypertension Pulmonary Medical History: Reports: Hx Asthma, Hx Bronchitis, Hx COPD Denies: Hx Pneumonia Neurological Medical History: Denies: Hx Cerebrovascular Accident, Hx Seizures Renal/ Medical History: Denies: Hx Peritoneal Dialysis GI Medical History: Reports: Hx Gastroesophageal Reflux Disease, Hx Hiatal Hernia, Hx Ulcer Musculoskeltal Medical History: Reports Hx Arthritis Infectious Medical History: Past Surgical History: Reports: Hx Cardiac Surgery - Stent x2 2001, Hx Cholecystectomy, Hx Hysterectomy, Hx Orthopedic Surgery - bilateral knees, Hx Tubal Ligation. Denies: Hx Pacemaker - Immunizations Hx Diphtheria, Pertussis, Tetanus Vaccination: No - UNSURE Hx Pneumococcal Vaccination: 09/27/10 Review of Systems - Review of Systems Notes: REVIEW OF SYSTEMS: CONSTITUTIONAL : Denies fever, chills, or sweats. Denies recent illness. EENT: Admits to accidental ingestion CARDIOVASCULAR: Denies chest pain. Denies palpitations or racing or irregular heart beat. Denies ankle edema. RESPIRATORY: Denies cough, cold, or chest congestion. Denies shortness of breath, difficulty breathing, or wheezing. GASTROINTESTINAL: Denies abdominal pain or distention. Denies nausea, vomiting , or diarrhea. Denies blood in vomitus, stools, or per rectum. Denies black, tarry stools. Denies constipation. GENITOURINARY: Denies difficulty urinating, painful urination, burning, frequency, blood in urine, or discharge. FEMALE GENITOURINARY: Denies vaginal bleeding, heavy or abnormal periods, irregular periods. Denies vaginal discharge or odor. MUSCULOSKELETAL: Denies back or neck pain or stiffness. Denies joint pain or swelling. SKIN: Denies rash, lesions or sores. HEMATOLOGIC : Denies easy bruising or bleeding. LYMPHATIC: Denies swollen, enlarged glands. NEUROLOGICAL: Denies confusion or altered mental status. Denies passing out or loss of consciousness. Denies dizziness or lightheadedness. Denies headache. Denies weakness or paralysis or loss of use of either side. Denies problems with gait or speech. Denies sensory loss, numbness, or tingling. Denies seizures. PSYCHIATRIC: Denies anxiety or stress. Denies depression, suicidal ideation, or homicidal ideation. ALL OTHER SYSTEMS REVIEWED AND NEGATIVE. PHYSICAL EXAMINATION: GENERAL: Well-appearing, well-nourished and in no acute distress. HEAD: Atraumatic, normocephalic. EYES: Pupils equal round and reactive to light, extraocular movements intact, conjunctiva are normal. ENT: Nares patent, oropharynx clear without exudates. Moist mucous membranes. NECK: Normal range of motion, supple without lymphadenopathy LUNGS: Breath sounds clear to auscultation bilaterally and equal. No wheezes rales or rhonchi. HEART: Regular rate and rhythm without murmurs ABDOMEN: Soft, nontender, nondistended abdomen. No guarding, no rebound. No masses appreciated. Female : deferred Musculoskeletal: Normal range of motion, no pitting or edema. No cyanosis. NEUROLOGICAL: Cranial nerves grossly intact. Normal speech, normal gait. Normal sensory, motor exams PSYCH: Normal mood, normal affect. SKIN: Warm, Dry, normal turgor, no rashes or lesions noted. Dictation was performed using [employer] recognition software Physical Exam - Vital signs Vitals: Temp Pulse Resp BP Pulse Ox 97.6 F 55 L 16 173/67 H 100 01/04/18 11:51 01/04/18 11:51 01/04/18 11:51 01/04/18 11:51 01/04/18 11:51 Course - Re-evaluation Re-evalutation: 01/04/18 11:52 Patient overall looks well airways patent she is able to swallow and drink water with no difficulty I have low suspicion of any life-threatening issues, patient denies any suicidal homicidal ideations I saw her 01/04/18 12:42 Patient has been watched for an hour has no complaints will discharge home After performing a Medical Screening Examination, I estimate there is LOW risk for ACUTE CORONARY SYNDROME, thus I consider the discharge disposition reasonable. I have reevaluated this patient multiple times and no significant life threatening changes are noted. The patient and I have discussed the diagnosis and risks, and we agree with discharging home to follow-up on an outpatient basis with the understanding that symptoms and presentations can change. We also discussed returning to the Emergency Department immediately if new or worsening symptoms occur. We have discussed the symptoms which are most concerning (e.g., saddle anesthesia, urinary or bowel incontinence or retention , changing or worsening pain) that necessitate immediate return. - Vital Signs Vital signs: Temp Pulse Resp BP Pulse Ox 97.6 F 55 L 16 173/67 H 100 01/04/18 11:51 01/04/18 11:51 01/04/18 11:51 01/04/18 11:51 01/04/18 11:51 Discharge - Discharge Clinical Impression: Ingestion of bleach Qualifiers: Encounter type: initial encounter Injury intent: undetermined intent Qualified Code(s): T54.94XA - Toxic effect of unspecified corrosive substance, undetermined, initial encounter Condition: Stable Disposition: HOME, SELF-CARE Additional Instructions: Please return immediately if there are any other concerns Referrals: IASBELLA SANDOVAL MD [ACTIVE STAFF] - Follow up as needed
[2018-01-04 12:48] VITALS: BP 172/80
== END 2018-01-04 12:48 | disposition home or self-care (01) ==
LOC: ER 11:49
DX: T54.91XA Toxic effect of unspecified corrosive substance, accidental (unintentional), initial encounter (principal); Y92.000 Kitchen of unspecified non-institutional (private) residence as the place of occurrence of the external cause; I25.10 Atherosclerotic heart disease of native coronary artery without angina pectoris; I10 Essential (primary) hypertension; J45.909 Unspecified asthma, uncomplicated
CPT/HCPCS: 99283

== ENCOUNTER → 2018-06-05 | Outpatient (CLI) | payer MEDICARE, MEDICAID ==
--- NOTE | 2018-06-05 08:24 | RADIOLOGY REPORT (SQ) ---
EXAM DESCRIPTION: CT ABD/PELVIS ORAL ONLY COMPLETED DATE/TIME: 06/05/2018 7:54 am REASON FOR STUDY: EPIGASTRIC PAIN R10.13 EPIGASTRIC PAIN COMPARISON: 08/26/2016 TECHNIQUE: CT scan of the abdomen and pelvis performed with oral contrast and no intravenous contras t. Images reviewed with lung, soft tissue, and bone windows. Reconstructed coronal and sagittal MPR i mages reviewed. All images stored on PACS. All CT scanners at this facility use dose modulation, iterative reconstruction, and/or weight based d osing when appropriate to reduce radiation dose to as low as reasonably achievable (ALARA). [facility]: Dose Right [facility]: CareDose [facility]: Dose Right [facility]: Teradose 4D [facility]: Smart AFTER-MOUSE RADIATION DOSE: CT Rad equipment meets quality standard of care and radiation dose reduction techniq ues were employed. CTDIvol: 15.2 mGy. DLP: 751 mGy-cm. mGy. LIMITATIONS: None. FINDINGS: LOWER CHEST: Small pericardial effusion. NON-CONTRASTED LIVER, SPLEEN, ADRENALS: Evaluation limited by lack of IV contrast. No identified sign ificant masses. PANCREAS: No masses. No peripancreatic inflammatory changes. GALLBLADDER: Surgically absent. RIGHT KIDNEY AND URETER: No suspicious masses. Assessment limited by lack of IV contrast. No signif icant calcifications. No hydronephrosis or hydroureter. LEFT KIDNEY AND URETER: No suspicious masses. Assessment limited by lack of IV contrast. No signifi cant calcifications. No hydronephrosis or hydroureter. AORTA AND RETROPERITONEUM: No aneurysm. No retroperitoneal masses or adenopathy. BOWEL AND PERITONEAL CAVITY: No obvious masses or inflammatory changes. No free fluid. APPENDIX: Normal. PELVIS, BLADDER, AND ABDOMINAL WALL: Calcified uterine fibroids. BONES: Interval development of L5 and T9 compression fractures not seen on previous study. OTHER: No other significant finding. IMPRESSION: No acute abdominal process. Interval development of L5 and T9 compression fractures not seen on previous study. TECHNICAL DOCUMENTATION: JOB ID: [id number] Quality ID # [id number]: Final reports with documentation of one or more dose reduction techniques (e.g., Au tomated exposure control, adjustment of the mA and/or kV according to patient size, use of iterative reconstruction technique) 2010 [employer]- All Rights Reserved Reading location - IP/workstation name: [email or web address]
== END ==
LOC: RAD 07:39
PROVIDERS: ATTEND Family Medicine
DX: R10.13 Epigastric pain (principal)
CPT/HCPCS: 74176

== ENCOUNTER → 2019-02-17 | Outpatient (CLI) | payer MEDICARE, MEDICAID ==
--- NOTE | 2019-02-18 08:48 | RADIOLOGY REPORT (SQ) ---
EXAM DESCRIPTION: MRI THORACIC SPINE COMBO COMPLETED DATE/TIME: 02/17/2019 5:18 pm REASON FOR STUDY: (C90.00)MULTIPLE MYELOMA NOT HAVING ACHIEVED REMISSION C90.00 MULTIPLE MYELOMA NO T HAVING ACHIEVED REMISSION COMPARISON: None. TECHNIQUE: Sagittal and Axial imaging includes T1, T2, STIR and gradient echo sequences. T1 post ga dolinium sequences. CONTRAST TYPE AND DOSE: 15 mL Dotarem. RENAL FUNCTION: Not indicated. ACR Type II contrast agent associated with few, if any, unconfounded cases of NSF LIMITATIONS: None. FINDINGS: LOCALIZER: No worrisome findings. ALIGNMENT: Exaggerated thoracic kyphosis. VERTEBRAE: Compression deformities are present at T4 and T9. BONE MARROW: Numerous areas of enhancement in marrow replacement consistent with a history of multipl e myeloma. There are focal lesions in the posterior aspect of T8 and T12. There is abnormal enhance ment in the posterior aspect of T6. There is mild marrow edema at both T4 and T9. HARDWARE: None in the spine. CORD: Normal in size and signal intensity. SOFT TISSUES: No soft tissue masses. THORACIC DISCS T1-T12: No significant spinal stenosis or exit foraminal stenosis. LOWER CERVICAL: Incompletely imaged. No significant spinal stenosis or exit foraminal stenosis. UPPER LUMBAR: Incompletely imaged. No significant spinal stenosis or exit foraminal stenosis. ENHANCEMENT: As above. OTHER: No other significant finding. IMPRESSION: Multiple thoracic spine lesions consistent with a history of multiple myeloma. Compress ion deformities of both T9 and T4. Mild marrow edema. These may be amendable to kyphoplasty if clin ically indicated. TECHNICAL DOCUMENTATION: JOB ID: [id number] [employer]- All Rights Reserved Reading location - IP/workstation name: [email or web address]
--- NOTE | 2019-02-18 08:54 | RADIOLOGY REPORT (SQ) ---
EXAM DESCRIPTION: MRI LUMBAR SPINE COMBO COMPLETED DATE/TIME: 02/17/2019 5:18 pm REASON FOR STUDY: (C90.00)MULTIPLE MYELOMA NOT HAVING ACHIEVED REMISSION C90.00 MULTIPLE MYELOMA NO T HAVING ACHIEVED REMISSION COMPARISON: None. TECHNIQUE: Sagittal and Axial imaging includes T1, T1 post gadolinium, T2, STIR and gradient echo se quences. Coronal T2/HASTE imaging. CONTRAST TYPE AND DOSE: 15 mL Dotarem. RENAL FUNCTION: Not indicated. ACR Type II contrast agent associated with few, if any, unconfounded cases of NSF LIMITATIONS: None. FINDINGS: VISUALIZED UPPER ABDOMEN: Limited evaluation. No acute or suspicious findings suggested. SEGMENTATION: No transitional anatomy. The lowest well-developed disc space is labeled L5-S1. ALIGNMENT: Anatomic. VERTEBRAE: Compression deformity of L5. There is approximately 40 to 50% loss of height. There is m arrow edema at L4 and L5. BONE MARROW: Marrow replacement at T12 possibly at L5. DISC SIGNAL: Multilevel disc space narrowing. Loss of normal water signal throughout the lumbar spin e. POSTERIOR ELEMENTS: Generally intact. No pars defect evident. HARDWARE: None in the spine. CORD AND CONUS: Normal in size and signal intensity. Conus at the appropriate level. SOFT TISSUES: No aortic aneurysm seen. No bulky retroperitoneal adenopathy or mass. No paraspinal mas s or fluid. L1-L2: Annular disc bulging. No high-grade central stenosis or nerve root impingement. L2-L3: Annular disc bulging. Facet arthropathy. There is a focal left lateral protrusion resulting in mass effect on the exiting left nerve root. No abnormal enhancement. L3-L4: Annular disc bulging with bilateral facet arthropathy. There is bilateral foraminal narrowing L4-L5: Disc space narrowing with bilateral facet arthropathy. There is bilateral foraminal stenosis right greater than left. L5-S1: Moderate central canal stenosis. Bilateral foraminal stenosis. Again there is 40 to 50% loss of height. LOWER THORACIC: Metastatic disease noted in T12. Compression deformity of T9. SACRUM: Focal areas of abnormal signal in the left sacral ala and left ilium which demonstrate enhanc ement suspicious for metastatic disease. ENHANCEMENT: Areas of abnormal enhancement at T12, L4 and L5. The enhancement at L5 may be secondary to the fracture although pathologic fracture at this level is also a possibility. OTHER: No other significant findings. IMPRESSION: 1. Numerous metastatic lesions consistent with a history of multiple myeloma. 2. L5 compression deformity with 40 to 50% loss of height. No retropulsion. There is annular disc bulging however resulting in moderate central canal stenosis. 3. Multilevel spondylosis with areas of central canal narrowing and bilateral foraminal stenosis thr oughout the lumbar spine. TECHNICAL DOCUMENTATION: JOB ID: [id number] [employer]- All Rights Reserved Reading location - IP/workstation name: [email or web address]
== END ==
LOC: RAD 14:37
PROVIDERS: ATTEND Internal Medicine
DX: C90.00 Multiple myeloma not having achieved remission (principal)
CPT/HCPCS: 82565; 72157; 72158; A9576

== ENCOUNTER 2019-03-05 11:36 | Inpatient (IN) | payer MEDICARE, MEDICAID ==
[2019-03-05 12:54] LABS: ABSOLUTE EOSINOPHILS # (AUTO) 0.1 10^3/uL (0.0-0.6); ABSOLUTE LYMPHOCYTES (AUTO) 1.2 10^3/uL (0.5-4.7); ABSOLUTE MONOCYTES (AUTO) 0.3 10^3/uL (0.1-1.4); ABSOLUTE NEUT (AUTO) 1.1 10^3/uL (1.7-8.2); BASOPHILS % (AUTO) 0.7 % (0-2); HEMOGLOBIN 11.7 g/dL (12.0-15.5); LYMPHOCYTES % (AUTO) 45.1 % (13-45); MEAN CORPUSCULAR HEMOGLOBIN 26.9 pg (27.0-33.4); MEAN CORPUSCULAR HGB CONC 32.6 g/dL (32.0-36.0); MEAN CORPUSCULAR VOLUME 83 fl (80-97); MONOCYTES % (AUTO) 10.9 % (3-13); PLATELET COUNT 156 10^3/uL (150-450); RED BLOOD COUNT 4.35 10^6/uL (3.72-5.28); RED CELL DISTRIBUTION WIDTH 15.8 % (11.5-14.0); SEGMENTED NEUTROPHILS % (AUTO) 41.3 % (42-78); TOTAL CELLS COUNTED % (AUTO) 100 %; WHITE BLOOD COUNT 2.6 10^3/uL (4.0-10.5)
--- NOTE | 2019-03-05 12:58 | ER Document Report ---
ED Medical Screen (RME) - General Chief Complaint: Dizziness Stated Complaint: DIZZINESS Time Seen by Provider: 03/05/19 12:53 Primary Care Provider: KVNG FERRARA MD [Primary Care Provider] - Follow up as needed Mode of Arrival: Medic Information source: Patient, Relative Notes: 88-year-old female presented to ED for complaint of dizziness and nausea when she woke up this morning about 1030 11:00. She states she got up and drank a glass of water and felt the nausea was a little better but she felt dizzy. Daughter states she was not able to get up so they called EMS and brought in by EMS. I have greeted and performed a rapid initial assessment of this patient. A comprehensive ED assessment and evaluation of the patient, analysis of test results and completion of medical decision making process will be conducted by an additional ED providers. TRAVEL OUTSIDE OF THE [place] IN LAST 30 DAYS: No - Related Data Allergies/Adverse Reactions: No Known Allergies Allergy (Verified 10/29/15 22:05) Past Medical History - Past Medical History Cardiac Medical History: Reports: Hx Coronary Artery Disease, Hx Heart Attack, H x Hypercholesterolemia, Hx Hypertension Pulmonary Medical History: Reports: Hx Asthma, Hx Bronchitis, Hx COPD Denies: Hx Pneumonia Neurological Medical History: Reports: Hx Cerebrovascular Accident Renal/ Medical History: Denies: Hx Peritoneal Dialysis Malignancy Medical History: Reports: Other - Multiple myeloma GI Medical History: Reports: Hx Gastroesophageal Reflux Disease, Hx Hiatal Hernia, Hx Ulcer, Hx Colonoscopy Musculoskeltal Medical History: Reports Hx Arthritis, Reports Hx Musculoskeletal Deformity, Reports Hx Musculoskeletal Trauma Skin Medical History: Reports None Psychiatric Medical History: Reports: Hx Anxiety Traumatic Medical History: Reports: Hx Fractures Infectious Medical History: Reports: None Past Surgical History: Reports: Hx Cardiac Surgery - Stent x2 2001, Hx Cholecystectomy, Hx Coronary Stent, Hx Orthopedic Surgery - And bilateral knees, Hx Tubal Ligation. Denies: Hx Pacemaker - Immunizations Hx Diphtheria, Pertussis, Tetanus Vaccination: No - UNSURE History of Pneumococcal Vaccine: Yes Physical Exam - Vital signs Vitals: Temp Pulse Resp BP Pulse Ox 97.7 F 43 L 16 169/72 H 94 03/05/19 11:42 03/05/19 11:42 03/05/19 11:42 03/05/19 11:42 03/05/19 11:42 Course - Vital Signs Vital signs: Temp Pulse Resp BP Pulse Ox 97.7 F 43 L 16 169/72 H 94 03/05/19 11:42 03/05/19 11:42 03/05/19 11:42 03/05/19 11:42 03/05/19 11:42 - Laboratory Result Diagrams: 03/05/19 12:38 03/05/19 12:38 Doctor's Discharge - Discharge Referrals: KVNG FERRARA MD [Primary Care Provider] - Follow up as needed
[2019-03-05 13:02] LABS: ALBUMIN 3.3 g/dL (3.5-5.0); ALKALINE PHOSPHATASE 53 U/L (38-126); ANION GAP 9 (5-19); ASPARTATE AMINO TRANSFERASE 23 U/L (14-36); BLOOD UREA NITROGEN 11 mg/dL (7-20); CALCIUM 8.1 mg/dL (8.4-10.2); CARBON DIOXIDE 23 mmol/L (22-30); CHLORIDE 109 mmol/L (98-107); CREATINE KINASE 71 U/L (30-135); GLUCOSE 94 mg/dL (75-110); POTASSIUM 3.5 mmol/L (3.6-5.0); TOTAL PROTEIN 6.6 g/dL (6.3-8.2)
[2019-03-05 13:13] LABS: CREATINE KINASE MB 0.46 ng/mL (<4.55)
[2019-03-05 13:19] LABS: TROPONIN I < 0.012 ng/mL
[2019-03-05 13:36] LABS: APPEARANCE,URINE CLEAR; BILIRUBIN,URINE NEGATIVE (NEGATIVE); COLOR,URINE YELLOW; GLUCOSE, URINE NEGATIVE (NEGATIVE); KETONES,URINE NEGATIVE (NEGATIVE); LEUKOCYTE ESTERASE,URINE NEGATIVE (NEGATIVE); NITRITE,URINE NEGATIVE (NEGATIVE); PROTEIN,URINE NEGATIVE (NEGATIVE); URINE SPECIFIC GRAVITY 1.011; UROBILINOGEN,URINE NEGATIVE mg/dL (<2.0)
[2019-03-05] MEDS ORDERED: ASPIRIN 81 MG TABLET, CHEWABLE PO ONE (15:10)
--- NOTE | 2019-03-05 16:33 | ER Document Report ---
ED General - General Chief Complaint: Dizziness Stated Complaint: DIZZINESS Time Seen by Provider: 03/05/19 12:53 Mode of Arrival: Medic TRAVEL OUTSIDE OF THE [place] IN LAST 30 DAYS: No - HPI Notes: 88-year-old female to the emergency department via EMS with complaints of dizziness and nausea that began this morning when she was getting up out of bed. States she is set up and started to walk to the restroom when she felt acutely globally weak and like she was spinning. She states that she sat back down and tried a drink some water but when she attempted to get back up she still had the sensation. She states that she called the medics and they brought her here to the emergency department. States she is never felt like this before. Initially she did not have chest pain, but is complaining of midsternal chest pressure. She denies any associated shortness of breath, diaphoresis, vomiting. She states that her nausea is resolved since arrival. She states that she has a history of cardiac stent several years ago. She is on aspirin but no other blood thinners. 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 Meza is her primary care. She states that she has not had any recent travel, leg swelling, history of DVT or PE. It is noted on the monitor that her heart rate is 37. - Related Data Allergies/Adverse Reactions: No Known Allergies Allergy (Verified 10/29/15 22:05) Past Medical History - General Information source: Patient, Relative - Social History Smoking Status: Never Smoker Frequency of alcohol use: None Drug Abuse: None Family History: CAD, Hypertension Patient has suicidal ideation: No Patient has homicidal ideation: No - Past Medical History Cardiac Medical History: Reports: Hx Coronary Artery Disease, Hx Heart Attack, Hx Hypercholesterolemia, Hx Hypertension Pulmonary Medical History: Reports: Hx Asthma, Hx Bronchitis, Hx COPD Denies: Hx Pneumonia Neurological Medical History: Reports: Hx Cerebrovascular Accident Renal/ Medical History: Denies: Hx Peritoneal Dialysis Malignancy Medical History: Reports: Other - Multiple myeloma GI Medical History: Reports: Hx Gastroesophageal Reflux Disease, Hx Hiatal Hernia, Hx Ulcer, Hx Colonoscopy Musculoskeletal Medical History: Reports Hx Arthritis, Reports Hx Musculoskeletal Deformity, Reports Hx Musculoskeletal Trauma Skin Medical History: Reports None Psychiatric Medical History: Reports: Hx Anxiety Traumatic Medical History: Reports: Hx Fractures Infectious Medical History: Reports: None Past Surgical History: Reports: Hx Cardiac Surgery - Stent x2 2001, Hx Chol ecystectomy, Hx Coronary Stent, Hx Orthopedic Surgery - And bilateral knees, Hx Tubal Ligation. Denies: Hx Pacemaker - Immunizations Hx Diphtheria, Pertussis, Tetanus Vaccination: No - UNSURE History of Pneumococcal Vaccine: Yes Hx Pneumococcal Vaccination: 09/27/10 Review of Systems - Review of Systems Constitutional: Weakness. denies: Chills, Fever EENT: No symptoms reported Cardiovascular: Chest pain, Dizziness. denies: Palpitations, Heart racing, Orthopnea, Dyspnea, Syncope, Lightheaded, Edema Respiratory: denies: Cough, Short of breath Gastrointestinal: Nausea. denies: Abdominal pain, Diarrhea, Vomiting Genitourinary: No symptoms reported Musculoskeletal: No symptoms reported Skin: No symptoms reported Hematologic/Lymphatic: No symptoms reported Neurological/Psychological: See HPI. denies: Confusion, Seizure, Lost consciousness, Headaches, Speech impairment, Numbness, Tingling, Tremor -: Yes All other systems reviewed and negative Physical Exam - Vital signs Vitals: Temp Pulse Resp BP Pulse Ox 97.7 F 43 L 16 169/72 H 94 03/05/19 11:42 03/05/19 11:42 03/05/19 11:42 03/05/19 11:42 03/05/19 11:42 Interpretation: Normal - General General appearance: Appears well, Alert In distress: None - HEENT Head: Normocephalic, Atraumatic Eyes: Normal Pupils: PERRL - Respiratory Respiratory status: No respiratory distress Chest status: Nontender Breath sounds: Normal. No: Decreased air movement, Rales, Rhonchi, Stridor, Wheezing Chest palpation: Normal - Cardiovascular Rhythm: Regular Heart sounds: Normal auscultation Murmur: No Notes: No leg edema - Abdominal Inspection: Normal Distension: No distension Bowel sounds: Normal Tenderness: Nontender Organomegaly: No organomegaly - Back Back: Normal, Nontender - Extremities General upper extremity: Normal inspection, Nontender, Normal color, Normal ROM, Normal temperature General lower extremity: Normal inspection, Nontender, Normal color, Normal ROM, Normal temperature, Normal weight bearing. No: Latanya's sign - Neurological Neuro grossly intact: Yes Cognition: Normal Orientation: AAOx4 Damon Coma Scale Eye Opening: Spontaneous Goode Coma Scale Verbal: Oriented Goode Coma Scale Motor: Obeys Commands Goode Coma Scale Total: 15 Speech: Normal Cranial nerves: Normal Cerebellar coordination: Heel-guthrie - No leg drift, normal [id number] bilaterally. Motor strength normal: LUE, RUE, LLE, RLE Sensory: Normal - Psychological Associated symptoms: Normal affect, Normal mood - Skin Skin Temperature: Warm Skin Moisture: Dry Skin Color: Normal Course - Re-evaluation Re-evalutation: 03/05/[address] Patricio, ER attending. We discussed patien t's bradycardia and her dizziness. We agreed that patient will need to be admitted for further evaluation. Spoke with Dr. Beltre, on-call for Dr. Meza. He he agrees with plan for admission but prior to excepting patient under the service would like for me to talk to Dr. Estrada. Spoke with Dr. Estrada and he agrees with plan for admission and would like for the patient to go to the [facility]. Called Dr. Beltre back and he agrees with the plan. Patient to be admitted to the hospital for further evaluation of her bradycardia and her dizziness. She has a negative first and second troponin. This bradycardia is new in the past she has had a rate of 50s or higher. She states that she is to be on atenolol but is no longer on it. Listed on her med list is amlodipine. Impression: Bradycardia, dizziness. Patient to be admitted to the hospital for further evaluation. Discussed this with patient and her family and they agree with the plan. - Vital Signs Vital signs: Temp Pulse Resp BP Pulse Ox 97.7 F 43 L 11 L 154/54 H 100 03/05/19 11:42 03/05/19 11:42 03/05/19 17:28 03/05/19 17:28 03/05/19 17:28 - Laboratory Result Diagrams: 03/05/19 12:38 03/05/19 12:38 Laboratory results interpreted by me: 03/05/19 03/05/19 03/05/19 12:38 12:38 13:10 WBC 2.6 L Hgb 11.7 L MCH 26.9 L RDW 15.8 H Lymph % (Auto) 45.1 H Absolute Neuts (auto) 1.1 L Seg Neutrophils % 41.3 L Potassium 3.5 L Chloride 109 H Est GFR (MDRD) Non-Af 56 L Calcium 8.1 L Albumin 3.3 L Urine Blood SMALL H - Diagnostic Test Radiology reviewed: Image reviewed, Reports reviewed - EKG Interpretation by Me Rate: Bradycardia When compared to previous EKG there are: No significant change Additional EKG results interpreted by me: 03/05/19 Rate of 37 rhythm sinus bradycardia. There is no ST elevation. No evidence of STEMI. Mild LVH. Noted difference in rate between old EKG but no other significant changes. Discharge - Discharge Clinical Impression: Dizziness, Bradycardia Disposition: ADMITTED INPATIENT Admitting Provider: [facility] Unit Admitted: [facility]
[2019-03-05 18:19] LABS: FREE T3 3.35 pg/mL (2.77-5.27); FREE T4 (FREE THYROXINE) 1.07 ng/dL (0.78-2.19)
[2019-03-05 18:32] LABS: THYROID STIMULATING HORMONE 0.41 uIU/mL (0.47-4.68)
[2019-03-05] MEDS ORDERED: MELATONIN 3 MG TABLET PO PRN (20:26)
[2019-03-05] MEDS: POTASSI CL 20 MEQ/50 ML RIDER 20 MEQ/50 ML RTUPB IV SCH ×2 (21:31→23:41)
[2019-03-05 22:06] LABS: CREATINE KINASE MB 0.56 ng/mL (<4.55); TROPONIN I 0.017 ng/mL
[2019-03-06 04:25] LABS: ABSOLUTE BASOPHILS # (AUTO) 0.1 10^3/uL (0.0-0.2); ABSOLUTE EOSINOPHILS # (AUTO) 0.1 10^3/uL (0.0-0.6); ABSOLUTE LYMPHOCYTES (AUTO) 1.6 10^3/uL (0.5-4.7); ABSOLUTE MONOCYTES (AUTO) 0.5 10^3/uL (0.1-1.4); ABSOLUTE NEUT (AUTO) 1.3 10^3/uL (1.7-8.2); BASOPHILS % (AUTO) 2.2 % (0-2); EOSINOPHILS % (AUTO) 3.3 % (0-6); HEMATOCRIT 34.8 % (36.0-47.0); HEMOGLOBIN 11.4 g/dL (12.0-15.5); LYMPHOCYTES % (AUTO) 45.9 % (13-45); MEAN CORPUSCULAR HEMOGLOBIN 27.2 pg (27.0-33.4); MEAN CORPUSCULAR HGB CONC 32.8 g/dL (32.0-36.0); MEAN CORPUSCULAR VOLUME 83 fl (80-97); MONOCYTES % (AUTO) 12.9 % (3-13); PLATELET COUNT 136 10^3/uL (150-450); RED CELL DISTRIBUTION WIDTH 15.5 % (11.5-14.0); SEGMENTED NEUTROPHILS % (AUTO) 35.7 % (42-78); TOTAL CELLS COUNTED % (AUTO) 100 %; WHITE BLOOD COUNT 3.5 10^3/uL (4.0-10.5)
[2019-03-06] MEDS ORDERED: PANTOPRAZOLE SODIUM 20 MG TABLET.DR PO SCH (06:00)
[2019-03-06 07:55] LABS: ALKALINE PHOSPHATASE 48 U/L (38-126); ANION GAP 5 (5-19); ASPARTATE AMINO TRANSFERASE 22 U/L (14-36); BILIRUBIN,DIRECT 0.1 mg/dL (0.0-0.4); BILIRUBIN,TOTAL 0.9 mg/dL (0.2-1.3); BLOOD UREA NITROGEN 12 mg/dL (7-20); CALCIUM 8.1 mg/dL (8.4-10.2); CARBON DIOXIDE 26 mmol/L (22-30); CHLORIDE 111 mmol/L (98-107); CREATINE KINASE 79 U/L (30-135); GLUCOSE 89 mg/dL (75-110); POTASSIUM 3.9 mmol/L (3.6-5.0); TOTAL PROTEIN 6.2 g/dL (6.3-8.2)
[2019-03-06 08:06] LABS: CREATINE KINASE MB 0.69 ng/mL (<4.55); TROPONIN I 0.018 ng/mL
[2019-03-06] MEDS ORDERED: ENOXAPARIN SODIUM INJ 40 MG/0.4 ML DISP.SYRIN SUBCUT SCH (10:00)
[2019-03-06] MEDS ORDERED: LOSARTAN POTASSIUM 50 MG TABLET PO SCH (10:00)
--- NOTE | 2019-03-06 12:55 | PDOC H&P ---
History of Present Illness Admission Date/PCP: 03/05/19 16:38 KVNG FERRARA MD Patient complains of: Generalized weakness, Dizziness, Nausea History of Present Illness: FREDERICK GARCIA is a 88 year old female patient of Dr. Ferrara who was brought to the ED via EMS due to reported generalized weakness, nausea and dizziness that she described as spinning. She reported that her symptoms started upon waking up this morning and recurred with her attempts at postural changes.She denied any associated chest pain, palpitation, difficulty with breathing. She vehemently denied any chest pressure like feeling at the time of my evaluation. There is extensive history of cardiac disease process including CAD s/p stent angioplasty as well as episodes of bradycardia that patient reported nothing was done about it. Her initial evaluation in the ED was suggestive of associated bradycardia with recorded heart rate about 37 / minute. Due to concern about worsening symptoms with bradycardia she was advised hospitalization. Her morbidities include HTN, CAD with stent angioplasty, Old [place], COPD with Asthma, GERD. Multiple Myeloma, Anemia with bleeding tendencies, and Osteoarthritis. Past Medical History Cardiac Medical History: Reports: Coronary Artery Disease, Myocardial Infarction, Hyperlipidema, Hypertension Pulmonary Medical History: Reports: Asthma, Bronchitis, Chronic Obstructive Pulmonary Disease (COPD) Denies: Pneumonia Malignancy Medical History: Reports: Other - Multiple myeloma GI Medical History: Reports: Gastroesophageal Reflux Disease, Hiatal Hernia Musculoskeltal Medical History: Reports: Arthritis Skin Medical History: Reports: None Hematology: Reports: Anemia, Bleeding Tendencies Infectious Medical History: Reports: None Past Surgical History Past Surgical History: Reports: Cholecystectomy, Coronary Stent, Orthopedic Surgery - And bilateral knees, Tubal Ligation Denies: Pacemaker Social History Smoking Status: Never Smoker Frequency of Alcohol Use: None Hx Recreational Drug Use: No Hx Prescription Drug Abuse: No Family History Family History: CAD, Hypertension Parental Family History Reviewed: Yes Children Family History Reviewed: Yes Sibling(s) Family History Reviewed.: Yes Medication/Allergy Allergies/Adverse Reactions: No Known Allergies Allergy (Verified 10/29/15 22:05) Review of Systems Constitutional: ABSENT: chills, fever(s), headache(s), weight gain, weight loss Eyes: ABSENT: visual disturbances Ears: ABSENT: hearing changes Nose, Mouth, and Throat: PRESENT: vertigo. ABSENT: headache(s), mouth pain, sore throat Cardiovascular: ABSENT: chest pain, dyspnea on exertion, edema, orthropnea, palpitations Respiratory: ABSENT: cough, hemoptysis Gastrointestinal: PRESENT: nausea. ABSENT: abdominal pain, vomiting Genitourinary: ABSENT: dysuria, hematuria Musculoskeletal: PRESENT: other - generalized weakness. ABSENT: back pain, joint swelling, muscle weakness Integumentary: ABSENT: rash, wounds Neurological: PRESENT: dizziness - described as spinning, vertigo - described spinning. ABSENT: as per HPI, abnormal gait, abnormal movements, abnormal speech, confusion, convulsions, focal weakness, frequent falls, lack of coordination, memory loss, numbness, paresthesias, restless legs, syncope, tingling, tremor(s), weakness, other Psychiatric: ABSENT: anxiety, depression, homidical ideation, suicidal ideation Endocrine: ABSENT: cold intolerance, heat intolerance, menstrual abnormalities, polydipsia, polyuria Hematologic/Lymphatic: ABSENT: easy bleeding, easy bruising, lymphadenopathy Allergic/Immunologic: ABSENT: seasonal rhinorrhea Physical Exam Vital Signs: Temp Pulse Resp BP Pulse Ox 97.5 F 57 L 20 190/63 H 99 03/05/19 20:00 03/05/19 20:00 03/05/19 20:00 03/05/19 20:00 03/05/19 20:00 Intake & Output 03/04/19 03/05/19 03/06/19 06:59 06:59 06:59 Weight 72.3 kg General appearance: PRESENT: no acute distress, well-developed, well-nourished Head exam: PRESENT: atraumatic, normocephalic Eye exam: PRESENT: conjunctiva pink, EOMI, PERRLA. ABSENT: scleral icterus Ear exam: PRESENT: normal external ear exam Mouth exam: PRESENT: moist Neck exam: PRESENT: full ROM. ABSENT: carotid bruit, JVD, lymphadenopathy, thyromegaly Respiratory exam: PRESENT: clear to auscultation viri Cardiovascular exam: PRESENT: RRR, +S1, +S2. ABSENT: diastolic murmur, rubs, systolic murmur Vascular exam: ABSENT: pallor GI/Abdominal exam: PRESENT: normal bowel sounds, soft. ABSENT: distended, guarding, mass, organolmegaly, rebound, tenderness Rectal exam: PRESENT: deferred Extremities exam: ABSENT: pedal edema Musculoskeletal exam: PRESENT: deformity - related to multiple joints involvement with arthritis Neurological exam: PRESENT: alert, awake, oriented to person, oriented to place, oriented to time, oriented to situation, CN II-XII grossly intact. ABSENT: motor sensory deficit Psychiatric exam: PRESENT: agitated - due to admission to the hospital, appropriate affect, normal mood. ABSENT: homicidal ideation, suicidal ideation Skin exam: PRESENT: dry, warm Results Laboratory Results: 03/05/19 12:38 03/05/19 12:38 03/05/19 03/05/19 03/05/19 12:38 12:38 12:38 WBC 2.6 L RBC 4.35 Hgb 11.7 L Hct 36.0 MCV 83 MCH 26.9 L MCHC 32.6 RDW 15.8 H Plt Count 156 Seg Neutrophils % 41.3 L Sodium 140.5 Potassium 3.5 L Chloride 109 H Carbon Dioxide 23 Anion Gap 9 BUN 11 Creatinine 0.95 Est GFR ( Amer) > 60 Glucose 94 Calcium 8.1 L Total Bilirubin 1.0 AST 23 Alkaline Phosphatase 53 Total Protein 6.6 Albumin 3.3 L TSH 0.41 L Free T4 1.07 Free T3 pg/mL 3.35 Urine Color Urine Appearance Urine pH Ur Specific [place] Urine Protein Urine Glucose (UA) Urine Ketones Urine Blood Urine Nitrite Ur Leukocyte Esterase Urine WBC (Auto) Urine RBC (Auto) 03/05/19 13:10 WBC RBC Hgb Hct MCV MCH MCHC RDW Plt Count Seg Neutrophils % Sodium Potassium Chloride Carbon Dioxide Anion Gap BUN Creatinine Est GFR ( Amer) Glucose Calcium Total Bilirubin AST Alkaline Phosphatase Total Protein Albumin TSH Free T4 Free T3 pg/mL Urine Color YELLOW Urine Appearance CLEAR Urine pH 6.0 Ur Specific [place] 1.011 Urine Protein NEGATIVE Urine Glucose (UA) NEGATIVE Urine Ketones NEGATIVE Urine Blood SMALL H Urine Nitrite NEGATIVE Ur Leukocyte Esterase NEGATIVE Urine WBC (Auto) 2 Urine RBC (Auto) 3 03/05/19 03/05/19 03/05/19 12:38 12:38 15:18 Creatine Kinase 71 CK-MB (CK-2) 0.46 Troponin I < 0.012 < 0.012 Assessment & Plan - Diagnosis (1) Bradycardia Is this a current diagnosis for this admission?: Yes Plan: See admitting attending physician orders about details of care plan. (2) Dizziness Is this a current diagnosis for this admission?: Yes Plan: See admitting attending physician orders about details of care plan. (3) HTN (hypertension) Qualifiers: Hypertension type: essential hypertension Qualified Code(s): I10 - Essential (primary) hypertension Is this a current diagnosis for this admission?: Yes Plan: See admitting attending physician orders about details of care plan. (4) CAD S/P percutaneous coronary angioplasty Is this a current diagnosis for this admission?: Yes Plan: See admitting attending physician orders about details of care plan. (5) COPD with asthma Is this a current diagnosis for this admission?: Yes Plan: See admitting attending physician orders about details of care plan. (6) Multiple myeloma Qualifiers: Multiple myeloma remission status: unspecified Qualified Code(s): C90.00 - Multiple myeloma not having achieved remission Is this a current diagnosis for this admission?: Yes Plan: See admitting attending physician orders about details of care plan. (7) Anemia Qualifiers: Anemia type: unspecified type Qualified Code(s): D64.9 - Anemia, unspecified Is this a current diagnosis for this admission?: Yes Plan: See admitting attending physician orders about details of care plan. (8) Bleeding tendency Is this a current diagnosis for this admission?: Yes Plan: See admitting attending physician orders about details of care plan. (9) Osteoarthritis involving multiple joints on both sides of body Is this a current diagnosis for this admission?: Yes Plan: See admitting attending physician orders about details of care plan. - Time Time Spent: 50 to 70 Minutes Medications reviewed and adjusted accordingly: Yes Anticipated discharge: Home Within: Other - Inpatient Certification Based on my medical assessment, after consideration of the patient's comorbidities, presenting symptoms, or acuity I expect that the services needed warrant INPATIENT care.: Yes I certify that my determination is in accordance with my understanding of Medicare's requirements for reasonable and necessary INPATIENT services [42 CFR 412.3e].: Yes Medical Necessity: Significant Comorbidiites Make Outpatient Treatment Too Risky, Need Close Monitoring Due to Risk of Patient Decompensation, Need For Continuous Telemetry Monitoring, Risk of Complication if Not Cared For in Hospital, Risk of Diagnosis Which Will Require Inpatient Eval/Care/Monitoring Post Hospital Care: D/C Belt Brander Documentation - Plan Summary Plan Summary: See admitting attending physician orders about details of care plan.
[2019-03-06] MEDS ORDERED: FLUTICASONE NASAL SPRAY 50 MCG/SPRY 120 SPRAY/16 GM NASL PRN (13:29)
--- NOTE | 2019-03-06 13:32 | PDOC DISCHARGE SUMMARY ---
General - Admit/Disc Date/PCP Admission Date/Primary Care Provider: 03/05/19 16:38 KVNG MEZA MD Discharge Date: 03/06/19 - Discharge Diagnosis (1) Bradycardia Is this a current diagnosis for this admission?: Yes (2) Dizziness Is this a current diagnosis for this admission?: Yes (3) HTN (hypertension) Is this a current diagnosis for this admission?: Yes (4) CAD S/P percutaneous coronary angioplasty Is this a current diagnosis for this admission?: Yes (5) COPD with asthma Is this a current diagnosis for this admission?: Yes (6) Multiple myeloma Is this a current diagnosis for this admission?: Yes (7) Anemia Is this a current diagnosis for this admission?: Yes (8) Bleeding tendency Is this a current diagnosis for this admission?: Yes (9) Osteoarthritis involving multiple joints on both sides of body Is this a current diagnosis for this admission?: Yes - Additional Information Resuscitation Status: Full Code Discharge Diet: Cardiac Discharge Activity: Activity As Tolerated Prescriptions: Losartan Potassium [Cozaar 50 mg Tablet] 50 mg PO DAILY #30 tablet Home Medications: Colestipol HCl [Colestid 1 gm Tablet] 1 gm PO BID 03/06/19 Fluticasone Propionate [Flonase Nasal Gilbert 50 Mcg/Gilbert 16 gm] 1 spray NASL DAILYP PRN 03/06/19 Isosorbide Mononitrate [Imdur 30 mg Tablet.er] 30 mg PO QHS 03/06/19 Lenalidomide [Revlimid] 5 mg PO DAILY 03/06/19 Losartan Potassium [Cozaar 50 mg Tablet] 50 mg PO DAILY #30 tablet 03/06/19 Xgeva 120 Inj 120 mg INJ .MONTHLY ON 03/06/19 History of Present Illness Patient complains of: Generalized weakness, Dizziness, Nausea History of Present Illness: FREDERICK GARCIA is a 88 year old female patient of Dr. Meza who was brought to the ED via EMS due to reported generalized weakness, nausea and dizziness that she described as spinning. She reported that her symptoms started upon waking up this morning and recurred with her attempts at postural changes.She denied any associated chest pain, palpitation, difficulty with breathing. She vehemently denied any chest pressure like feeling at the time of my evaluation. There is extensive history of cardiac disease process including CAD s/p stent angioplasty as well as episodes of bradycardia that patient reported nothing was done about it. Her initial evaluation in the ED was suggestive of associated bradycardia with recorded heart rate about 37 / minute. Due to concern about worsening symptoms with bradycardia she was advised hospitalization. Her morbidities include Hypertension, CAD with stent angioplasty, Old [place], COPD with Asthma, GERD. Multiple Myeloma, Anemia with bleeding tendencies, and Osteoarthritis. Hospital Course Hospital Course: Patient denied any persistence of her presenting symptoms. I did discuss case with Dr. Hart, senior management consultant, who agreed that patient can be discharge home. Her cardiac enzymes evaluation were within normal range. She denied any chest pain or chest pressure. She will be discharged home today with resumption of her preadmission medications and follow up with Dr. Hart and Derrick as instructed upon discharge. Physical Exam Vital Signs: Temp Pulse Resp BP Pulse Ox 97.8 F 46 L 17 182/67 H 99 03/06/19 11:07 03/06/19 11:07 03/06/19 11:07 03/06/19 11:07 03/06/19 11:07 Intake & Output 03/05/19 03/06/19 03/07/19 06:59 06:59 06:59 Intake Total 350 360 Balance 350 360 Weight 76.3 kg General appearance: PRESENT: no acute distress, well-developed, well-nourished Head exam: PRESENT: atraumatic, normocephalic Eye exam: PRESENT: conjunctiva pink. ABSENT: scleral icterus Ear exam: PRESENT: normal external ear exam Mouth exam: PRESENT: moist Respiratory exam: PRESENT: clear to auscultation viri Cardiovascular exam: PRESENT: bradycardia, RRR, +S1, +S2. ABSENT: diastolic murmur, rubs, systolic murmur Vascular exam: ABSENT: pallor GI/Abdominal exam: PRESENT: normal bowel sounds, soft. ABSENT: distended, guarding, mass, organolmegaly, rebound, tenderness Extremities exam: ABSENT: pedal edema Musculoskeletal exam: PRESENT: ambulatory Neurological exam: PRESENT: alert, awake, oriented to person, oriented to place, oriented to time, oriented to situation, CN II-XII grossly intact. ABSENT: motor sensory deficit Psychiatric exam: PRESENT: appropriate affect, normal mood. ABSENT: homicidal ideation, suicidal ideation Skin exam: PRESENT: dry, warm Results Laboratory Results: 03/06/19 03:48 03/06/19 06:58 03/05/19 03/05/19 03/05/19 12:38 12:38 13:10 WBC RBC Hgb Hct MCV MCH MCHC RDW Plt Count Seg Neutrophils % Sodium 140.5 Potassium 3.5 L Chloride 109 H Carbon Dioxide 23 Anion Gap 9 BUN 11 Creatinine 0.95 Est GFR ( Amer) > 60 Est GFR (Non-Af Amer) Glucose 94 Calcium 8.1 L Magnesium Total Bilirubin 1.0 AST 23 Alkaline Phosphatase 53 Total Protein 6.6 Albumin 3.3 L TSH 0.41 L Free T4 1.07 Free T3 pg/mL 3.35 Urine Color YELLOW Urine Appearance CLEAR Urine pH 6.0 Ur Specific [place] 1.011 Urine Protein NEGATIVE Urine Glucose (UA) NEGATIVE Urine Ketones NEGATIVE Urine Blood SMALL H Urine Nitrite NEGATIVE Ur Leukocyte Esterase NEGATIVE Urine WBC (Auto) 2 Urine RBC (Auto) 3 03/05/19 03/06/19 03/06/19 15:18 03:48 03:48 WBC 3.5 L RBC 4.20 Hgb 11.4 L Hct 34.8 L MCV 83 MCH 27.2 MCHC 32.8 RDW 15.5 H Plt Count 136 L Seg Neutrophils % 35.7 L Sodium Cancelled Potassium Cancelled Chloride Cancelled Carbon Dioxide Cancelled Anion Gap Cancelled BUN Cancelled Creatinine Cancelled Est GFR ( Amer) Cancelled Est GFR (Non-Af Amer) Cancelled Glucose Cancelled Calcium Cancelled Magnesium 1.5 L Total Bilirubin Cancelled AST Cancelled Alkaline Phosphatase Cancelled Total Protein Cancelled Albumin Cancelled TSH Free T4 Free T3 pg/mL Urine Color Urine Appearance Urine pH Ur Specific [place] Urine Protein Urine Glucose (UA) Urine Ketones Urine Blood Urine Nitrite Ur Leukocyte Esterase Urine WBC (Auto) Urine RBC (Auto) 03/06/19 06:58 WBC RBC Hgb Hct MCV MCH MCHC RDW Plt Count Seg Neutrophils % Sodium 142.4 Potassium 3.9 Chloride 111 H Carbon Dioxide 26 Anion Gap 5 BUN 12 Creatinine 0.93 Est GFR ( Amer) > 60 Est GFR (Non-Af Amer) Glucose 89 Calcium 8.1 L Magnesium Total Bilirubin 0.9 AST 22 Alkaline Phosphatase 48 Total Protein 6.2 L Albumin 3.0 L TSH Free T4 Free T3 pg/mL Urine Color Urine Appearance Urine pH Ur Specific [place] Urine Protein Urine Glucose (UA) Urine Ketones Urine Blood Urine Nitrite Ur Leukocyte Esterase Urine WBC (Auto) Urine RBC (Auto) 03/05/19 03/05/19 03/05/19 12:38 12:38 15:18 Creatine Kinase 71 CK-MB (CK-2) 0.46 Troponin I < 0.012 < 0.012 03/05/19 03/05/19 03/06/19 21:25 21:25 03:48 Creatine Kinase 71 Cancelled CK-MB (CK-2) 0.56 Troponin I 0.017 03/06/19 03/06/19 03/06/19 03:48 06:58 06:58 Creatine Kinase 79 CK-MB (CK-2) Cancelled 0.69 Troponin I Cancelled 0.018 Qualifiers - * PATIENT BEING DISCHARGED WITH ANY OF THE FOLLOWING DIAGNOSIS: No Acute Heart Failure - Is this a Heart Failure Patient?: No Plan Discharge Plan: D/C home today. Follow up with Dr. Khan as instructed upon discharge.
[2019-03-06 13:35] VITALS: BP 137/72
[2019-03-06] MEDS ORDERED: COLESTIPOL HCL 1 GM PO SCH (18:00)
--- NOTE | 2019-03-06 18:52 | EKG REPORT ---
SEVERITY:- OTHERWISE NORMAL ECG - SINUS BRADYCARDIA BORDERLINE LEFT AXIS DEVIATION : Confirmed by: Osvaldo Bro 06-Mar-2019 18:51:15
--- NOTE | 2019-03-06 18:52 | EKG REPORT ---
SEVERITY:- BORDERLINE ECG - SINUS BRADYCARDIA LVH BY VOLTAGE : Confirmed by: Osvaldo Bro 06-Mar-2019 18:51:10
[2019-03-06] MEDS ORDERED: ISOSORBIDE MONONITRATE 30 MG TAB.ER.24H PO SCH (22:00)
[2019-03-07] MEDS ORDERED: (PENDING PHARMACY ID) (Lenalidomide [Revlimid] 5 MG) PO SCH (10:00)
== END 2019-03-06 13:50 | disposition home or self-care (01) | DRG 309 ==
LOC: ER 11:36 → EH 16:38 → 3W 19:46 → 3N 22:43
PROVIDERS: ADMIT Family Medicine; ATTEND Family Medicine
DX: R00.1 Bradycardia, unspecified (principal); C90.00 Multiple myeloma not having achieved remission; I10 Essential (primary) hypertension; I25.10 Atherosclerotic heart disease of native coronary artery without angina pectoris; J44.9 Chronic obstructive pulmonary disease, unspecified; D64.9 Anemia, unspecified; M15.3 Secondary multiple arthritis; K21.9 Gastro-esophageal reflux disease without esophagitis; E78.5 Hyperlipidemia, unspecified; F41.9 Anxiety disorder, unspecified; E78.00 Pure hypercholesterolemia, unspecified; I25.2 Old myocardial infarction; Z95.5 Presence of coronary angioplasty implant and graft; Z82.49 Family history of ischemic heart disease and other diseases of the circulatory system; Z86.73 Personal history of transient ischemic attack (TIA), and cerebral infarction without residual deficits
CPT/HCPCS: 36415; 80053; 81001; 82550; 82553; 83735; 84439; 84443; 84481; 84484; 85025; 93005; 93010; 99285; J1650; J3480; J3490

== ENCOUNTER → 2020-01-26 | Outpatient (CLI) | payer MEDICARE, MEDICAID ==
--- NOTE | 2020-01-26 17:31 | RADIOLOGY REPORT (SQ) ---
EXAM DESCRIPTION: HIP RIGHT AP/LATERAL IMAGES COMPLETED DATE/TIME: 01/26/2020 4:37 pm REASON FOR STUDY: PAIN IN RIGHT HIP, LOW BACK PAIN M25.551 PAIN IN RIGHT HIP COMPARISON: None. NUMBER OF VIEWS: Two views. TECHNIQUE: AP pelvis and additional frog-leg view of the right hip. LIMITATIONS: None. FINDINGS: MINERALIZATION: Normal. RIGHT HIP: No fracture or dislocation. No worrisome bone lesions. LEFT HIP: No fracture or dislocation. No worrisome bone lesions. PUBIS AND ISCHIUM: No fracture. PELVIS: No fracture. SACRUM: No fracture or dislocation. No worrisome bone lesions. LOWER LUMBAR SPINE: Lower lumbar degenerative changes. SOFT TISSUES: No findings. OTHER: No other significant finding. IMPRESSION: Lower lumbar degenerative changes. Normal hip. TECHNICAL DOCUMENTATION: JOB ID: [id number] 2010 [place] [employer]- All Rights Reserved Reading location - IP/workstation name: [email or web address]
--- NOTE | 2020-01-26 17:39 | RADIOLOGY REPORT (SQ) ---
EXAM DESCRIPTION: LUMBAR SPINE COMPLETE IMAGES COMPLETED DATE/TIME: 01/26/2020 4:37 pm REASON FOR STUDY: PAIN IN RIGHT HIP, LOW BACK PAIN M25.551 PAIN IN RIGHT HIP COMPARISON: None. NUMBER OF VIEWS: Five views including obliques. TECHNIQUE: AP, lateral, oblique, and sacral radiographic images acquired of the lumbar spine. LIMITATIONS: None. FINDINGS: MINERALIZATION: Osteopenia. SEGMENTATION: Normal. No transitional anatomy. ALIGNMENT: Mild dextroscoliosis. VERTEBRAE: There is loss of height at L5 that does not appear to be acute. DISCS: All the lumbar discs are narrowed. Marginal osteophytes are present. POSTERIOR ELEMENTS: Hypertrophic facet changes from L4-S1. HARDWARE: None in the spine. PARASPINAL SOFT TISSUES: Normal. PELVIS: Intact as visualized. No fractures or worrisome bone lesions. SI joints intact. OTHER: No other significant finding. IMPRESSION: Scoliosis. Degenerative disc disease. Spondylosis. Facet arthropathy. Osteopenia. C ompression changes at L5 that do not appear to be acute. TECHNICAL DOCUMENTATION: JOB ID: [id number] 2010 [employer]- All Rights Reserved Reading location - IP/workstation name: [email or web address]
== END ==
LOC: RAD 16:08
PROVIDERS: ATTEND Nurse Practitioner Family
DX: M25.551 Pain in right hip (principal); M51.36 Other intervertebral disc degeneration, lumbar region; M54.5 Low back pain; M47.816 Spondylosis without myelopathy or radiculopathy, lumbar region
CPT/HCPCS: 72110

== ENCOUNTER 2020-02-05 12:32 | Emergency (ER) | payer MEDICARE, MEDICAID ==
[2020-02-05] MEDS ORDERED: DIPHENHYDRAMINE HCL 25 MG CAPSULE PO ONE (13:22)
--- NOTE | 2020-02-05 13:23 | ER Document Report ---
ED Medical Screen (RME) - General Chief Complaint: Skin Problem Stated Complaint: SKIN ITCHING Time Seen by Provider: 02/05/20 13:19 Primary Care Provider: THERON MERA NP [Primary Care Provider] - Follow up as needed Mode of Arrival: Ambulatory Information source: Patient Notes: 89-year-old female presented to ED for itching all over. She states she was at the oncologist and got her shot for her multiple myeloma and now she is itching all over. I do not see any hives I do not see any rash I do not see any reason for her itching. I will get blood work and have her seen by 1 of the doctors. I have greeted and performed a rapid initial assessment of this patient. A comprehensive ED assessment and evaluation of the patient, analysis of test resu lts and completion of medical decision making process will be conducted by an additional ED providers. TRAVEL OUTSIDE OF THE [place] IN LAST 30 DAYS: No - Related Data Allergies/Adverse Reactions: No Known Allergies Allergy (Verified 10/29/15 22:05) Past Medical History - Social History Frequency of alcohol use: None Drug Abuse: None - Past Medical History Cardiac Medical History: Reports: Hx Coronary Artery Disease, Hx Heart Attack, Hx Hypercholesterolemia, Hx Hypertension Pulmonary Medical History: Reports: Hx Asthma, Hx Bronchitis, Hx COPD Denies: Hx Pneumonia Neurological Medical History: Reports: Hx Cerebrovascular Accident Renal/ Medical History: Denies: Hx Peritoneal Dialysis GI Medical History: Reports: Hx Gastroesophageal Reflux Disease, Hx Hiatal Hernia, Hx Ulcer, Hx Colonoscopy Musculoskeltal Medical History: Reports Hx Arthritis, Reports Hx Musculoskeletal Deformity, Reports Hx Musculoskeletal Trauma Psychiatric Medical History: Reports: Hx Anxiety Traumatic Medical History: Reports: Hx Fractures Infectious Medical History: Past Surgical History: Reports: Hx Cardiac Surgery - Stent x2 2001, Hx Cholecystectomy, Hx Coronary Stent, Hx Orthopedic Surgery - And bilateral knees, Hx Tubal Ligation. Denies: Hx Pacemaker - Immunizations Hx Diphtheria, Pertussis, Tetanus Vaccination: No - UNSURE Physical Exam - Vital signs Vitals: Temp Pulse Resp BP Pulse Ox 99.2 F 64 20 149/90 H 98 02/05/20 12:37 02/05/20 12:37 02/05/20 12:37 02/05/20 12:37 02/05/20 12:37 Course - Vital Signs Vital signs: Temp Pulse Resp BP Pulse Ox 99.2 F 64 20 149/90 H 98 02/05/20 12:37 02/05/20 12:37 02/05/20 12:37 02/05/20 12:37 02/05/20 12:37 Doctor's Discharge - Discharge Referrals: THERON MERA NP [Primary Care Provider] - Follow up as needed
[2020-02-05 14:07] LABS: ALBUMIN 4.1 g/dL (3.5-5.0); ALKALINE PHOSPHATASE 83 U/L (38-126); ANION GAP 5 (5-19); ASPARTATE AMINO TRANSFERASE 36 U/L (14-36); BILIRUBIN,TOTAL 0.8 mg/dL (0.2-1.3); BLOOD UREA NITROGEN 28 mg/dL (7-20); CARBON DIOXIDE 27 mmol/L (22-30); CHLORIDE 106 mmol/L (98-107); GLUCOSE 95 mg/dL (75-110); POTASSIUM 4.3 mmol/L (3.6-5.0); TOTAL PROTEIN 7.8 g/dL (6.3-8.2); URIC ACID 3.3 mg/dL (2.5-7.5)
[2020-02-05 14:18] LABS: ABSOLUTE EOSINOPHILS # (AUTO) 0.1 10^3/uL (0.0-0.6); ABSOLUTE LYMPHOCYTES (AUTO) 1.7 10^3/uL (0.5-4.7); ABSOLUTE MONOCYTES (AUTO) 0.3 10^3/uL (0.1-1.4); ABSOLUTE NEUT (AUTO) 1.4 10^3/uL (1.7-8.2); BASOPHILS % (AUTO) 0.3 % (0-2); EOSINOPHILS % (AUTO) 3.1 % (0-6); HEMATOCRIT 39.1 % (36.0-47.0); HEMOGLOBIN 12.9 g/dL (12.0-15.5); LYMPHOCYTES % (AUTO) 48.2 % (13-45); MEAN CORPUSCULAR HEMOGLOBIN 27.7 pg (27.0-33.4); MEAN CORPUSCULAR VOLUME 84 fl (80-97); MONOCYTES % (AUTO) 7.7 % (3-13); PLATELET COUNT 168 10^3/uL (150-450); RED BLOOD COUNT 4.65 10^6/uL (3.72-5.28); RED CELL DISTRIBUTION WIDTH 15.8 % (11.5-14.0); SEGMENTED NEUTROPHILS % (AUTO) 40.7 % (42-78); TOTAL CELLS COUNTED % (AUTO) 100 %; WHITE BLOOD COUNT 3.5 10^3/uL (4.0-10.5)
[2020-02-05 14:22] LABS: APPEARANCE,URINE CLEAR; BILIRUBIN,URINE NEGATIVE (NEGATIVE); COLOR,URINE YELLOW; GLUCOSE, URINE NEGATIVE (NEGATIVE); KETONES,URINE NEGATIVE (NEGATIVE); LEUKOCYTE ESTERASE,URINE MODERATE (NEGATIVE); NITRITE,URINE NEGATIVE (NEGATIVE); PROTEIN,URINE NEGATIVE (NEGATIVE); URINE SPECIFIC GRAVITY 1.014; UROBILINOGEN,URINE NEGATIVE mg/dL (<2.0)
[2020-02-05 15:05] VITALS: BP 136/78
--- NOTE | 2020-02-05 15:08 | ER Document Report ---
ED General - General Chief Complaint: Skin Problem Stated Complaint: SKIN ITCHING Time Seen by Provider: 02/05/20 13:19 Primary Care Provider: THERON MERA NP [Primary Care Provider] - Follow up as needed Mode of Arrival: Ambulatory Notes: Patient is an 89-year-old -[place] female with a history of multiple myeloma who presents to the emergency department with a chief complaint of itching after an infusion of her medicine today, Xgeva. She states this has happened once in the past and was transient in nature. She states that after she left her appointment she started having itching of the palms and scalp of her head. She states that she was told in the past that she has dry skin and was recommended to use lotion. She states that she went home, washed her hair in the shower and used some lotion on her hands and that the itching has resolved. Because of the medication and infusion they decided to bring the patient for evaluation and clearance. The patient denies any chest pain or shortness of breath. No difficulty breathing, trouble with secretions or tongue or throat swelling. No rash reported. TRAVEL OUTSIDE OF THE [place] IN LAST 30 DAYS: No - Related Data Allergies/Adverse Reactions: No Known Allergies Allergy (Verified 10/29/15 22:05) Past Medical History - General Information source: Patient - Social History Smoking Status: Never Smoker Frequency of alcohol use: None Drug Abuse: None Family History: CAD, Hypertension - Past Medical History Cardiac Medical History: Reports: Hx Coronary Artery Disease, Hx Heart Attack, Hx Hypercholesterolemia, Hx Hypertension Pulmonary Medical History: Reports: Hx Asthma, Hx Bronchitis, Hx COPD Denies: Hx Pneumonia Neurological Medical History: Reports: Hx Cerebrovascular Accident Renal/ Medical History: Denies: Hx Peritoneal Dialysis GI Medical History: Reports: Hx Gastroesophageal Reflux Disease, Hx Hiatal Herni a, Hx Ulcer, Hx Colonoscopy Musculoskeletal Medical History: Reports Hx Arthritis, Reports Hx Musculoskeletal Deformity, Reports Hx Musculoskeletal Trauma Psychiatric Medical History: Reports: Hx Anxiety Traumatic Medical History: Reports: Hx Fractures Infectious Medical History: Past Surgical History: Reports: Hx Cardiac Surgery - Stent x2 2001, Hx Cholecystectomy, Hx Coronary Stent, Hx Orthopedic Surgery - And bilateral knees, Hx Tubal Ligation. Denies: Hx Pacemaker - Immunizations Hx Diphtheria, Pertussis, Tetanus Vaccination: No - UNSURE Hx Pneumococcal Vaccination: 09/27/10 Review of Systems - Review of Systems Notes: Per HPI Physical Exam - Vital signs Vitals: Temp Pulse Resp BP Pulse Ox 99.2 F 64 20 149/90 H 98 02/05/20 12:37 02/05/20 12:37 02/05/20 12:37 02/05/20 12:37 02/05/20 12:37 - General General appearance: Appears well, Alert In distress: None - HEENT Head: Normocephalic, Atraumatic Eyes: Normal Pupils: PERRL Pharynx: Normal, Other - Patent airway. Handling secretions well. Neck: Normal, Supple - Respiratory Respiratory status: No respiratory distress Chest status: Nontender Breath sounds: Normal Chest palpation: Normal - Cardiovascular Rhythm: Regular Heart sounds: Normal auscultation - Extremities General lower extremity: Normal inspection, Nontender, Normal color - Neurological Neuro grossly intact: Yes Cognition: Normal Orientation: AAOx4 - Psychological Associated symptoms: Normal affect, Normal mood - Skin Skin Temperature: Warm Skin Moisture: Dry Skin Color: Normal Skin irregularity: negative: Rash Course - Re-evaluation Re-evalutation: 02/05/20 15:04 Patient is pleasant, resting comfortably in bed and appropriate affect. She is smiling and states that she is no longer symptomatic. Reports that all her pruritus has abated. Medication profile does show adverse reactions of rash although the patient has no evidence of rash and did not describe a rash. She does have dry skin throughout. Suspect a component of her dry skin in relation to the pruritus. Possible transient effect of the medications but she has no evidence of severe reaction or anaphylaxis. Does not require any steroids, Benadryl or Pepcid at this time. We discussed ongoing supportive care measures and monitoring. Advised that she discuss this with her multiple myeloma doctor. Counseled her regarding the importance of outpatient follow-up and advised she return here or any ER immediately with any new, persistent or worsening symptoms. She and her daughter verbalized understood and agreed. - Vital Signs Vital signs: Temp Pulse Resp BP Pulse Ox 99.2 F 64 20 149/90 H 98 02/05/20 12:37 02/05/20 12:37 02/05/20 12:37 02/05/20 12:37 02/05/20 12:37 - Laboratory Result Diagrams: 02/05/20 13:26 02/05/20 13:26 Laboratory results interpreted by me: 02/05/20 02/05/20 02/05/20 13:26 13:26 13:26 WBC 3.5 L RDW 15.8 H Lymph % (Auto) 48.2 H Absolute Neuts (auto) 1.4 L Seg Neutrophils % 40.7 L BUN 28 H Est GFR (MDRD) Non-Af 51 L Ur Leukocyte Esterase MODERATE H Urine Ascorbic Acid 40 H Discharge - Discharge Clinical Impression: Transient pruritus Condition: Stable Disposition: HOME, SELF-CARE Instructions: Normal Exam and Workup ([facility]) Additional Instructions: Follow-up with your regular doctor in 2 to 3 days for reevaluation. Return here or any ER immediately with any new, persistent or worsening symptoms. Referrals: THERON MERA NP [Primary Care Provider] - Follow up as needed
== END 2020-02-05 15:17 | disposition home or self-care (01) ==
LOC: ER 12:32
DX: L29.9 Pruritus, unspecified (principal); I25.10 Atherosclerotic heart disease of native coronary artery without angina pectoris; I25.2 Old myocardial infarction; I10 Essential (primary) hypertension; J44.9 Chronic obstructive pulmonary disease, unspecified
CPT/HCPCS: 99283; 36415; 84550; 85025; 80053; 81001; A9270